=== PATIENT | male | born 1935 | race Caucasian/White ===

== ENCOUNTER 2018-09-23 08:14 | Day surgery (SDC) | payer MEDICARE ==
[~2018-09-23 08:14] MED LIST: Ak-Dilate OPHTHALMIC*** 1.065 ML, Cyclogyl 1% OPHTH SOL 5 ML 1.065 ML, GATIFLOXACIN 0.5... OP ONE; Lactated Ringers 1,000 ML IV SCH; TETRACAINE 0.5% STERI-UNIT SOL OP ONE
[2018-09-23] MEDS ORDERED: DIPRIVAN 200 MG/20 ML IV ONE (08:15)
[2018-09-23] MEDS ORDERED: Lactated Ringers 1,000 ML IV ONE (08:21)
[2018-09-23] MEDS ORDERED: Zofran 4 MG/2 ML VIAL IV PRN (09:00)
[2018-09-23] MEDS ORDERED: ACETAZOLAMIDE 250 MG TABLET PO ONE (09:00)
[2018-09-23] MEDS ORDERED: Epinephrine Preservative Free 1 MG/ML INTRAOP ONE (10:00)
[2018-09-23] MEDS ORDERED: LIDOCAINE HCL 1% AMPUL 5 ML IJ ONE ×2 (10:00)
[2018-09-23] MEDS ORDERED: BSS 500 ML, Fortaz/Tazicef 1 GM** 0.2 G IO ONE ×4 (10:00)
[2018-09-23] MEDS ORDERED: Epinephrine Preservative Free 1 MG/ML IJ ONE (10:00)
[2018-09-23] MEDS ORDERED: BETADINE 5% OPHTHALMIC 30 ML OP ONE ×2 (10:00)
[2018-09-23] MEDS ORDERED: Cortisporin Ophth Oint 3.5 GM OP ONE (10:30)
[2018-09-23 12:10] VITALS: BP 144/86; PULSE 67; O2SAT 91
--- NOTE | 2018-09-23 13:40 | OP ---
DATE/TIME OF OPERATION: 09/23/2018 1037 TIME DICTATED: 1242 PREOPERATIVE DIAGNOSIS: Senile cataract of left eye. POSTOPERATIVE DIAGNOSIS: Senile cataract of left eye. SURGEON: Lianna Vogt MD PRODUCT MARKETING DIRECTOR: None. OPERATION: Cataract extraction of left eye with an intraocular lens implant. STANDARD __X___ COMPLEX ANESTHESIA: MAC. ___X___ Monitored anesthesia care in combination with topical and intra-cameral anesthesia (because of the established specific risk of reflux, arrhythmias, or an anxiety attack associated with ocular manipulation as well as difficulty of the green feed attendant to manage such potentially catastrophic events while simultaneously attempting to complete the surgical procedure, it was deemed necessary for the patient's safety to have an anesthesiologist or a nurse barker operator present during the procedure whenever possible. The anesthesiologist or the nurse barker operator was utilized to monitor and regulate the intravenous sedation of the patient, so the patient was cooperative, relaxed, and comfortable). Topical anesthesia using Tetracaine eye drops together with intra cameral anesthesia using Lidocaine 1% MPF. The nurse was utilized to monitor the patient. ANESTHESIA PROVIDER: Jose Elias Bautista CRNA. COMPLICATIONS: None. BLOOD LOSS: None. INDICATIONS: The patient is undergoing cataract surgery in the hopes of eliminating the visual complaints and difficulty. PROCEDURE: After arriving at the facility's outpatient surgery area, an IV was started; the patient was given 5 mg of p.o. Versed. (If an anesthesia provider was not monitoring the patient) The patient was then given topical anesthetic Tetracaine eye drops. A cotton pellet was soaked into a solution of a combination of Zymaxid 0.5%, Herbie-Synephrine 2.5% and Ocufen (other drops might have been substituted referenced in the patient's record). The pellet was inserted by the RN into the lower conjunctival cul-de-sac with a sterile forceps and left for 20 minutes. The pellet was then removed by the RN with a sterile forceps before taking the patient to the operating room. The preoperative area nurse identified the patient and marked the correct eye to be operated on. I identified the correct eye to be operated on and marked it appropriately in the outpatient surgery area. The patient was then taken into the operating room. Tetracaine eye drops were installed again in the correct eye. The eyelids and the lashes and the lid margins were scrubbed with Betadine solution. One drop of the diluted Betadine solution was placed in the conjunctival cul-de-sac for 45 seconds and then was irrigated. A drop of Tetracaine Gel was placed in the conjunctival cul-de-sac. The patient's forehead was taped to secure it during the procedure. The patient was monitored. The patient was then draped in the usual way for this procedure. An eye speculum was used to separate the eyelids. The eye was then fixated and a temporal 2.5 mm incision was made in the clear cornea temporally at the limbus. Through the incision, 0.25 cc of 1% non-preserved lidocaine was injected into the anterior chamber for intracameral anesthesia. The anterior chamber was then filled with viscoelastic. The pupil was small. I felt that it would be safer to mechanically dilate the pupil. A Malyugin ring was used at this point which dilated the pupil. That was removed at the end of the procedure prior to aspiration of the viscoelastic from the anterior chamber and posterior to the intraocular lens implant. The cataract had a great amount of cortical changes. That rendered seeing the anterior capsule difficult for a safe performance of an anterior capsulotomy. I injected an air bubble into the anterior chamber. I then injected 1 ML of vision blue solution into the anterior chamber. The vision blue solution was irrigated from the anterior chamber after 30 seconds. The anterior capsule was stained which facilitated performing the anterior capsulotomy safely. After that was completed, a cystotome was introduced into the anterior chamber and a round anterior capsulotomy was performed. The capsule was removed by a forceps. Hydrodissection was next carried utilizing a 25-gauge cannula and balanced salt solution to delineate the cortical material from the capsule and the nucleus from the cortical material. The nucleus was rotated freely into the capsular bag with no difficulty. The phaco tip of the [employer] Phacoemulsifier was introduced into the anterior chamber and two grooves were made into the nucleus 90 degrees apart. Using two spatulas resulted into the nucleus being fractured into four quadrants. The phaco tip was then used to remove each quadrant of the nucleus. Viscoelastic was used during this process to protect the corneal endothelium. Once the entire nucleus was removed, the phaco tip then was removed and the irrigation tip was introduced into the eye and the cortex was removed. The posterior capsule was polished. It was noticed that there was a tear into the posterior capsule with few vitreous strands into the pupil plan. An anterior vitrectomy was performed. A 22.00 diopter, [id number], posterior chamber lens implant, was inspected and found to be grossly normal. The implant was inserted into the implant injector cartridge; Viscoelastic again was introduced into the anterior chamber, which filled the capsular bag. The implant injector's cartridge tip was placed at the limbal wound and the posterior chamber implant was released into the capsular bag and rotated appropriately. The implant was found to be into the capsular bag and it was centered. ___X__ 0.2 ml of Tri-Moxi was introduced via 27 gauge cannula into the vitreous cavity through the ciliary processes. Viscoelastic was aspirated from the anterior chamber and posterior to the intraocular lens implant from the capsular bag using the irrigating tip. The anterior chamber was irrigated and filled with 5 cc antibiotic solution (500 cc of BSS plus 2 ml of Fortaz 100 mg/ml) ( if patient was not allergic to the medication). The lips of the corneal incision were hydrated using BSS solution. The anterior chamber was checked and found to be water tight. One drop each of antibiotic, steroid and NSAID drops (refer to chart for drops used) were placed in the conjunctival cul-de-sac of the operated eye. NOTE: Because the patient has dry eyes I also put Maxitrol ointment in the left eye to be used b.i.d. Patient tolerated the procedure quite well and left the operating room in satisfactory condition. DISCHARGE SUMMARY: The patient was released in stable condition. The patient and those with the patient were given an instruction sheet as of how to care for the eye after surgery as well as counseling on any abnormal laboratory studies by the postoperative RN. The patient was also given an appointment card for follow-up in the office and is to call immediately for any difficulties including but not limited to pain in the eye, decreased vision, discharge from the eye, headache and or fever. DISCHARGE DIAGNOSIS: Pseudophakia of left eye.
== END 2018-09-23 12:26 | disposition home or self-care (01) ==
LOC: SDC 08:14
PROVIDERS: ATTEND Ophthalmology
DX: H25.812 Combined forms of age-related cataract, left eye (principal); Z79.899 Other long term (current) drug therapy
CPT/HCPCS: 82962; 99100; C1780; J0171; J2704; A9270-GY

== ENCOUNTER 2019-04-17 02:11 | Emergency (ER) | payer MEDICARE ==
[2019-04-17] MEDS ORDERED: LOPRESSOR 5 MG/5 ML INJECTION IV ONE ×2 (02:24→02:38)
[2019-04-17] MEDS ORDERED: Sodium Chloride 0.9% 1000 ML 1,000 ML IV SCH (02:30)
--- NOTE | 2019-04-17 02:31 | ERPHSYRPT ---
- History of Present Illness Time Seen by Provider: 04/17/19 02:15 Historian: patient Exam Limitations: no limitations Physician History: Chest Pain for the past two days. This evening's episode woke him up from sleep. Timing/Duration: day(s) (2) Activities at Onset: sleep Quality: aching Location: central Chest Pain Radiation: arm Severity of Pain-Max: moderate Severity of Pain-Current: mild Modifying Factors: Improves With: aspirin (relieved it this morning). Worsens With: breathing, coughing, eating, lying down, movement, palpation Associated Symptoms: No nausea, No vomiting, No palpitations, No heartburn, No abdominal pain, No shortness of breath, No cough, No hurts to breathe, No diaphoresis, No chills, No fever, No fatigue, No weakness, No swelling/lump in chest, No syncope, No rash, No headache, No dizziness, No edema, No back pain Prior Chest Pain/Cardiac Workup: cardiac cath, heart attack Nitro Today/Relief: no nitro taken today Aspirin Treatment Today: 325 mg x 1, provided at home Allergies/Adverse Reactions: morphine Allergy (Unknown, Verified 04/17/19 02:16) states "got hot and sweaty with a shot after surgery" Home Medications: Aspirin EC 325 mg [Ecotrin 325 MG] 325 mg PO DAILY 08/14/13 [History] Metformin HCl 500 mg [Glucophage 500 MG] 1,000 mg PO BID 08/14/13 [History ] Metoprolol Succinate 50 mg [Toprol Xl 50 MG] 50 mg PO BID 08/14/13 [ History] Simvastatin 40 mg [Zocor 40 mg] 40 mg PO DAILY 08/14/13 [History] Gabapentin 300 mg PO UD 09/15/18 [History] Glipizide 10 mg PO BID 09/15/18 [History] Lorazepam 2 mg PO QHS 09/15/18 [History] Nortriptyline HCl 10 mg PO QHS 09/15/18 [History] - Review of Systems Constitutional: No Fever, No Chills Eyes: No Symptoms, No Vision Changes Ears, Nose, & Throat: No Symptoms, No Throat Pain Respiratory: No Cough, No Dyspnea Cardiac: Chest Pain, No Edema, No Syncope Abdominal/Gastrointestinal: No Abdominal Pain, No Nausea, No Vomiting, No Diarrhea, No Hematemesis, No Hematochezia, No Melena Genitourinary Symptoms: No Dysuria Musculoskeletal: No Back Pain, No Neck Pain Skin: No Rash Neurological: No Dizziness, No Focal Weakness, No Sensory Changes Psychological: No Anxiety Endocrine: No Excessive Sweating Hematologic/Lymphatic: No Easy Bleeding, No Easy Bruising All Other Systems: Reviewed and Negative - Past Medical History Pertinent Past Medical History: Yes Neurological History: Peripheral Neuropathy ENT History: Cataracts Cardiac History: Coronary Artery Disease, High Cholesterol, Hypertension Respiratory History: No Pertinent History Endocrine Medical History: Diabetes Type II Musculoskeletal History: No Pertinent History GI Medical History: No Pertinent History History: No Pertinent History Psycho-Social History: Anxiety Male Reproductive Disorders: No Pertinent History - Past Surgical History Past Surgical History: Yes Neuro Surgical History: No Pertinent History Cardiac: CABG, Cardiac Catheterization Respiratory: No Pertinent History Gastrointestinal: No Pertinent History Genitourinary: No Pertinent History Musculoskeletal: No Pertinent History Male Surgical History: No Pertinent History Other Surgical History: Skin cancer removed from face in 2001, bone removed from left side of face. - Social History Smoking Status: Never smoker Exposure to second hand smoke: No Drug Use: none - Nursing Vital Signs Nursing Vital Signs: Initial Vital Signs Pulse Rate 88 04/17/19 02:16 Respiratory Rate 21 04/17/19 02:16 Blood Pressure 155/106 04/17/19 02:16 O2 Sat by Pulse Oximetry 88 L 04/17/19 02:16 Pain Scale Pain Intensity 4 - Physical Exam General Appearance: no apparent distress, alert Eye Exam: PERRL/EOMI, eyes nml inspection Ears, Nose, Throat Exam: normal ENT inspection, moist mucous membranes Neck Exam: normal inspection, non-tender, supple, full range of motion Respiratory Exam: normal breath sounds, lungs clear, No respiratory distress, No crackles/rales, No rhonchi, No wheezing Cardiovascular Exam: regular rate/rhythm, normal heart sounds, normal peripheral pulses Gastrointestinal/Abdomen Exam: soft, normal bowel sounds, No tenderness, No mass , No guarding, No rebound Back Exam: normal inspection, No CVA tenderness, No vertebral tenderness Extremity Exam: normal inspection, normal range of motion Neurologic Exam: alert, oriented x 3, cooperative, normal mood/affect, sensation nml, No motor deficits Skin Exam: normal color, warm, dry SpO2 Interpretation: hypoxic, O2 applied O2 Delivery: Nasal Cannula - Course Nursing assessment & vital signs reviewed: Yes EKG Interpreted by Me: RATE (90), Sinus Rhythm, NORMAL AXIS, Right Bundle Branch Block, NORMAL ST-T, Other (no acute change in comparison to EKG from 2013) - Radiology Exams Chest X-ray Interpretation: Interpreted by me, Reviewed by me, Negative, No Fracture, No Pneumonia, No Pneumothorax, No Infiltrates, Nml Mediastinum Ordered Tests: Active Orders 24 hr Category Date Time Status 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 STAT Care 04/17/19 02:24 Active EKG-ER Only STAT Care 04/17/19 02:24 Active IV Insertion STAT Care 04/17/19 02:24 Active Pulse Oximetry (ED) STAT Care 04/17/19 02:24 Active CHEST 1 VIEW (PORTABLE) Stat Exams 04/17/19 02:49 Taken CBC W DIFF Stat Lab 04/17/19 02:25 Completed CK-Creatinine Phosphokinase Stat Lab 04/17/19 02:25 Completed CMP Stat Lab 04/17/19 02:25 Completed MAGNESIUM Stat Lab 04/17/19 02:25 Completed NT PRO BNP Stat Lab 04/17/19 02:25 Completed PROTIME WITH INR Stat Lab 04/17/19 02:25 Completed PTT Stat Lab 04/17/19 02:25 Completed TROPONIN Q3H Lab 04/17/19 02:25 Completed TROPONIN Q3H Lab 04/17/19 05:30 Ordered TROPONIN Q3H Lab 04/17/19 08:30 Ordered TROPONIN Q3H Lab 04/17/19 11:30 Ordered TROPONIN Q3H Lab 04/17/19 14:30 Ordered VENOUS BLOOD GAS Stat Lab 04/17/19 02:40 Completed Medication Summary Generic Name Dose Route Start Last Admin Trade Name Freq PRN Reason Stop Dose Admin Sodium Chloride 1,000 mls @ 100 mls/hr 04/17/19 02:30 04/17/19 02:43 Sodium Chloride 0.9% 1000 Ml IV 05/17/19 02:29 100 mls/hr .Q10H [place] Administration Heparin Sodium/Dextrose 250 mls @ 9 mls/hr 04/17/19 03:28 Heparin 25,000 Units/D5w 250ml Premix IV 05/17/19 03:26 .Q24H [place] Heparin Sodium/Dextrose 25,000 units in 250 mls @ 9 mls/hr 04/17/19 03:30 03:31 Heparin 25,000 Units/D5w 250ml Premix IV 05/17/19 03:29 9 ml/hr .Q24H [place] 9 mls/hr Administration Discontinued Medications Generic Name Dose Route Start Last Admin Trade Name Freq PRN Reason Stop Dose Admin Famotidine 20 mg 04/17/19 02:33 04/17/19 02:43 Pepcid 20 Mg Vial IV 04/17/19 02:34 20 mg STAT ONE Administration Famotidine Confirm 04/17/19 02:38 Pepcid 20 Mg Vial Administered 04/17/19 02:39 Dose 20 mg IV .STK-MED ONE Heparin Sodium (Beef Lung) 4,200 unit 04/17/19 03:10 04/17/19 03:19 Heparin 5000 Units/0.5 Ml (High Risk Med) IV 04/17/19 03:11 4,200 unit STAT ONE Administration Heparin Sodium (Beef Lung) Confirm 04/17/19 03:14 Heparin 5000 Units/0.5 Ml (High Risk Med) Administered 04/17/19 03:15 Dose 5,000 unit .ROUTE .STK-MED ONE Heparin Sodium/Dextrose 250 mls @ 9 mls/hr 04/17/19 03:30 Heparin 25,000 Units/D5w 250ml Premix IV 05/17/19 03:29 .Q24H [place] Heparin Sodium/Dextrose Confirm 04/17/19 03:15 Heparin 25,000 Units/D5w 250ml Premix Administered 04/17/19 03:16 Dose 25,000 units in 250 mls @ ud IV .STK-MED ONE Metoprolol Tartrate 5 mg 04/17/19 02:24 04/17/19 02:43 Lopressor 5 Mg/5 Ml Injection IV 04/17/19 02:25 5 mg STAT ONE Administration Metoprolol Tartrate Confirm 04/17/19 02:38 Lopressor 5 Mg/5 Ml Injection Administered 04/17/19 02:39 Dose 5 mg IV .STK-MED ONE Lab/Rad Data: Laboratory Result Diagrams 04/17/19 02:25 04/17/19 02:25 Laboratory Results 04/17/19 04/17/19 04/17/19 Range/Units 02:40 02:25 02:25 WBC (4.0-10.5) K/mm3 RBC (4.1-5.6) M/mm3 Hgb (12.5-18.0) gm/dl Hct (42-50) % MCV (78-100) fl MCH (26-32) pg MCHC (32-36) g/dl RDW (11.5-14.0) % Plt Count (150-450) K/mm3 MPV (6-9.5) fl Gran % (36.0-66.0) % Eos # (Auto) (0-0.5) Absolute Lymphs (auto) (1.0-4.6) Absolute Monos (auto) (0.0-1.3) Lymphocytes % (24.0-44.0) % Monocytes % (0.0-12.0) % Eosinophils % (0.00-5.0) % Basophils % (0.0-0.4) % Absolute Granulocytes (1.4-6.9) Basophils # (0-0.4) PT (8.83-12.87) SECONDS INR (0.8-3.0) APTT (24.1-36.1) SECONDS pO2/FiO2 Ratio 21.0 % VBG pH 7.32 (7.32-7.42) VBG pCO2 at Pat Temp 52 (42-55) mm/Hg VBG pO2 at Pat Temp 24 L (25-40) mm/Hg VBG HCO3 26.8 (22-28) meq/L VBG O2 Sat (Thony) 47.1 L (95-100) VBG Base Excess -0.3 (-2.0-2.0) VBG Hemoglobin 15.3 VBG Carboxyhemoglobin 2.1 (0.0-6.9) % T HGB POC Potassium 4.7 (3.5-5.1) Sodium (137-145) mmol/L Potassium (3.5-5.1) mmol/L Chloride (98-107) mmol/L Carbon Dioxide (22-30) mmol/L Anion Gap (5-15) MEQ/L BUN (9-20) mg/dL Creatinine (0.66-1.25) mg/dL Estimated GFR ML/MIN Glucose (74-106) mg/dL Calcium (8.4-10.2) mg/dL Magnesium 1.8 (1.6-2.3) mg/dL Total Bilirubin (0.2-1.3) mg/dL AST (17-59) U/L ALT (0-50) U/L Alkaline Phosphatase (38-126) U/L Creatine Kinase (55-170) U/L Troponin I 0.450 H* (0.000-0.034) ng/mL NT-Pro-B Natriuret Pep (0-1800) pg/mL Serum Total Protein (6.3-8.2) g/dL Albumin (3.5-5.0) g/dL 04/17/19 04/17/19 04/17/19 Range/Units 02:25 02:25 02:25 WBC 9.9 (4.0-10.5) K/mm3 RBC 4.42 (4.1-5.6) M/mm3 Hgb 14.9 (12.5-18.0) gm/dl Hct 45.5 (42-50) % MCV 102.9 H (78-100) fl MCH 33.7 H (26-32) pg MCHC 32.7 (32-36) g/dl RDW 15.0 H (11.5-14.0) % Plt Count 234 (150-450) K/mm3 MPV 9.0 (6-9.5) fl Gran % 55.0 (36.0-66.0) % Eos # (Auto) 0.40 (0-0.5) Absolute Lymphs (auto) 3.06 (1.0-4.6) Absolute Monos (auto) 0.94 (0.0-1.3) Lymphocytes % 31.0 (24.0-44.0) % Monocytes % 9.5 (0.0-12.0) % Eosinophils % 4.1 (0.00-5.0) % Basophils % 0.4 (0.0-0.4) % Absolute Granulocytes 5.43 (1.4-6.9) Basophils # 0.04 (0-0.4) PT 12.9 H (8.83-12.87) SECONDS INR 1.14 (0.8-3.0) APTT 32.6 (24.1-36.1) SECONDS pO2/FiO2 Ratio % VBG pH (7.32-7.42) VBG pCO2 at Pat Temp (42-55) mm/Hg VBG pO2 at Pat Temp (25-40) mm/Hg VBG HCO3 (22-28) meq/L VBG O2 Sat (Thony) (95-100) VBG Base Excess (-2.0-2.0) VBG Hemoglobin VBG Carboxyhemoglobin (0.0-6.9) % T HGB POC Potassium (3.5-5.1) Sodium 141 (137-145) mmol/L Potassium 4.8 (3.5-5.1) mmol/L Chloride 104 (98-107) mmol/L Carbon Dioxide 26 (22-30) mmol/L Anion Gap 15.5 H (5-15) MEQ/L BUN 26 H (9-20) mg/dL Creatinine 1.03 (0.66-1.25) mg/dL Estimated GFR > 60.0 ML/MIN Glucose 191 H (74-106) mg/dL Calcium 9.5 (8.4-10.2) mg/dL Magnesium (1.6-2.3) mg/dL Total Bilirubin 0.50 (0.2-1.3) mg/dL AST 31 (17-59) U/L ALT 16 (0-50) U/L Alkaline Phosphatase 82 (38-126) U/L Creatine Kinase 84 (55-170) U/L Troponin I (0.000-0.034) ng/mL NT-Pro-B Natriuret Pep 4580 H (0-1800) pg/mL Serum Total Protein 7.6 (6.3-8.2) g/dL Albumin 4.3 (3.5-5.0) g/dL - Progress Progress: improved Air Movement: good Progress Note: 04/17/19 03:00 Patient is chest pain free at this time. Sinus rhythm on the color television console monitor. Taking the patient off the oxygen, 97 percent on room air with 95% while talking HEART score: 7- up to 16.6% risk of adverse cardiac event, moderate risk 04/17/19 03:12 Spoke with Transfer Center at [facility]. Patient has been auto-accepted into admission to the emergency department after presentation, EKG , labwork and chest x-ray reviewed. 04/17/19 03:[address] Merchant into [facility] emergency department. 04/17/19 03:48 Patient restarted on oxygen as his saturation dropped to 88% on room air. Blood Culture(s) Obtained: No Antibiotics given: No Counseled pt/family regarding: lab results, diagnosis, need for follow-up, rad results - Departure Departure Disposition: Transfer ([facility] in [place], [place] and accepted by Dr Merchant) Clinical Impression: Acute coronary syndrome with high troponin, Hypoxia Hypertension Qualifiers: Hypertension type: essential hypertension Qualified Code(s): I10 - Essential ( primary) hypertension Condition: Serious Critical Care Time: Yes Critical Care Time(excluding separately billable procedures): Critical 30-74 mins Referrals: BRIE CALDWELL [Primary Care Provider] -
[2019-04-17] MEDS ORDERED: Pepcid 20 MG VIAL IV ONE ×2 (02:33→02:38)
[2019-04-17] MEDS ORDERED: Sodium Chloride 0.9% 1000 ML 1,000 ML ONE (02:38)
[2019-04-17 02:40] LABS: BASOPHIL % 0.4 % (0.0-0.4); Basophil (Absolute #) 0.04 (0-0.4); Eosinophil % 4.1 % (0.00-5.0); Granulocyte Absolute (ANC) 5.43 (1.4-6.9); Hematocrit 45.5 % (42-50); Hemoglobin 14.9 gm/dl (12.5-18.0); Lymphocyte (Absolute #) 3.06 (1.0-4.6); Mean Cell Volume 102.9 fl (78-100); Mean Corpuscular Hemoglobin 33.7 pg (26-32); Mean Corpuscular Hgb Concent. 32.7 g/dl (32-36); Monocyte (Absolute #) 0.94 (0.0-1.3); Monocytes % 9.5 % (0.0-12.0); Platelet Count 234 K/mm3 (150-450); Red Blood Count 4.42 M/mm3 (4.1-5.6); White Blood Count 9.9 K/mm3 (4.0-10.5)
[2019-04-17 02:44] LABS: VBG BASE EXCESS -0.3 (-2.0-2.0); VBG CARBOXYHEMOGLOBIN 2.1 % T HGB (0.0-6.9); VBG HCO3- 26.8 meq/L (22-28); VBG HEMOGLOBIN 15.3; VBG O2 SATURATION 47.1 (95-100); VBG POTASSIUM 4.7 (3.5-5.1); VBG pH 7.32 (7.32-7.42)
[2019-04-17 02:48] LABS: INR 1.14 (0.8-3.0); PROTIME 12.9 SECONDS (8.83-12.87)
[2019-04-17 02:50] LABS: PTT 32.6 SECONDS (24.1-36.1)
[2019-04-17 03:02] LABS: ALBUMIN 4.3 g/dL (3.5-5.0); ALKALINE PHOSPHATASE 82 U/L (38-126); ANION GAP 15.5 MEQ/L (5-15); BLOOD UREA NITROGEN 26 mg/dL (9-20); CHLORIDE 104 mmol/L (98-107); CK-Creatinine Phosphokinase 84 U/L (55-170); Calcium 9.5 mg/dL (8.4-10.2); Carbon Dioxide 26 mmol/L (22-30); Creatinine 1 1.03 mg/dL (0.66-1.25); Glucose 191 mg/dL (74-106); NT PRO BNP 4580 pg/mL (0-1800); Potassium 4.8 mmol/L (3.5-5.1); SGOT/AST 31 U/L (17-59); SGPT/ALT 16 U/L (0-50); SODIUM 141 mmol/L (137-145); Total Protein 7.6 g/dL (6.3-8.2)
[2019-04-17] MEDS ORDERED: Heparin 5000 UNITS/0.5 ML (HIGH RISK MED) IV ONE (03:10)
[2019-04-17] MEDS ORDERED: Heparin 5000 UNITS/0.5 ML (HIGH RISK MED) ONE (03:14)
[2019-04-17] MEDS ORDERED: Heparin 25,000 units/D5W 250ML PREMIX 25,000 UNITS/250 ML BAG IV ONE (03:15)
[2019-04-17] MEDS ORDERED: Heparin 25,000 units/D5W 250ML PREMIX 25,000 UNITS/250 ML BAG IV SCH ×2 (03:28→03:30)
[2019-04-17] MEDS ORDERED: Heparin 25,000 units/D5W 250ML PREMIX 250 ML IV SCH (03:30)
[2019-04-17 03:42] VITALS: BP 154/100; PULSE 83; O2SAT 94
--- NOTE | 2019-04-17 08:51 | XRAY ---
Indication: Chest pain. Comparison: None Portable apical lordotic chest is slightly under inflated and clear with incidental overlying monitoring leads. Heart is not enlarged with previous CABG surgery. Bony thorax intact with mild osteopenia and degenerative changes. Impression: Nonacute chest with chronic features.
== END 2019-04-17 03:58 | disposition short-term general hospital (02) ==
LOC: ED 02:11
DX: I24.9 Acute ischemic heart disease, unspecified (principal); R74.8 Abnormal levels of other serum enzymes; R09.02 Hypoxemia; I10 Essential (primary) hypertension
CPT/HCPCS: 36000; 36415; 71045; 80053; 82550; 82805; 83735; 83880; 84484; 85025; 85610; 85730; 93005; 93041; 94760; 96360; 96374; 96375; 96376; 99285; 99291; J1644

== ENCOUNTER 2019-08-19 11:57 | Emergency (ER) | payer MEDICARE ==
--- NOTE | 2019-08-19 12:24 | ERPHSYRPT ---
- History of Present Illness Time Seen by Provider: 08/19/19 12:10 Source: patient, family Exam Limitations: no limitations Patient Subjective Stated Complaint: Pt has had a nose bleed since approx 0700 this morning, stated that it did let up for a little bit but then started back up Triage Nursing Assessment: Pt brought to the ER by his , denies pain, nose is not actively bleeding at this time, vitals wnl, pulses normal, denies injury or trauma, doesn't appear to be in any distress Physician History: 84 yo on aspirin/plavix, 3 L nasal canula all the time presented with mild right nasal bleed around 7am which stopped on its own but later around 1030 again had bleed. denies any clot s, no difficulty breathing. does not use nasal steroids. Timing/Duration: gradual onset Severity: mild ENT Location: nose Prearrival Treatment: no prearrival treatment Modifying Factors: Improves With: oxygen Associated Symptoms: epistaxis, No dizziness, No facial pain/swelling, No headache, No nasal congestion/drainage, No nasal foreign body, No neck pain, No swollen glands Allergies/Adverse Reactions: morphine Allergy (Unknown, Verified 08/19/19 12:15) states "got hot and sweaty with a shot after surgery" Home Medications: Aspirin EC 325 mg [Ecotrin 325 MG] 325 mg PO DAILY 08/14/13 [History] Metformin HCl 500 mg [Glucophage 500 MG] 1,000 mg PO BID 08/14/13 [History ] Metoprolol Succinate 50 mg [Toprol Xl 50 MG] 50 mg PO BID 08/14/13 [ History] Gabapentin 300 mg PO UD 09/15/18 [History] Glipizide 10 mg PO BID 09/15/18 [History] Lorazepam 2 mg PO QHS 09/15/18 [History] Nortriptyline HCl 10 mg PO QHS 09/15/18 [History] Clopidogrel Bisulfate [Clopidogrel] 75 mg PO DAILY 08/19/19 [History] Hx Influenza Vaccination/Date Given: Yes Hx Pneumococcal Vaccination/Date Given: Yes - Review of Systems Constitutional: No Symptoms Eyes: No Symptoms Ears, Nose, & Throat: No Symptoms, Epistaxis (no active bleed /lesion) Respiratory: Dyspnea, Wheezing Cardiac: No Symptoms Abdominal/Gastrointestinal: No Symptoms Genitourinary Symptoms: No Symptoms Musculoskeletal: No Symptoms Skin: No Symptoms Neurological: No Symptoms Psychological: No Symptoms Endocrine: No Symptoms Hematologic/Lymphatic: No Symptoms - Past Medical History Pertinent Past Medical History: Yes Neurological History: Peripheral Neuropathy ENT History: Cataracts Cardiac History: Coronary Artery Disease, High Cholesterol, Hypertension Respiratory History: No Pertinent History Endocrine Medical History: Diabetes Type II Musculoskeletal History: No Pertinent History GI Medical History: No Pertinent History History: No Pertinent History Psycho-Social History: Anxiety Male Reproductive Disorders: No Pertinent History - Past Surgical History Past Surgical History: Yes Neuro Surgical History: No Pertinent History Cardiac: CABG, Cardiac Catheterization Respiratory: No Pertinent History Gastrointestinal: No Pertinent History Genitourinary: No Pertinent History Musculoskeletal: No Pertinent History Male Surgical History: No Pertinent History Other Surgical History: Skin cancer removed from face in 2001, bone removed from left side of face. - Social History Smoking Status: Former smoker Exposure to second hand smoke: No Drug Use: none Patient Lives Alone: No - Nursing Vital Signs Nursing Vital Signs: Initial Vital Signs Pulse Rate 104 H 08/19/19 12:05 Blood Pressure 107/79 08/19/19 12:05 O2 Sat by Pulse Oximetry 98 08/19/19 12:05 Pain Scale Pain Intensity 0 - Physical Exam General Appearance: no apparent distress, alert Eye Exam: bilateral eye: normal inspection Nasal Exam: normal inspection, No dried blood (no lesion or tricling of blood noticed in both nares after blowing nose .), No foreign body Throat Exam: normal, pharynx normal Neck Exam: normal inspection Cardiovascular/Respiratory Exam: chest non-tender Abdominal Exam: non-tender, soft Neurologic Exam: alert, oriented x 3, cooperative, 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, normal mood/affect Skin Exam: normal color SpO2 Interpretation: normal SpO2: 3 O2 Delivery: Room Air - Course Nursing assessment & vital signs reviewed: Yes Ordered Tests: Active Orders 24 hr Category Date Time Status CBC W DIFF Stat Lab 08/19/19 12:40 Completed PT INR [PROTIME WITH INR] Stat Lab 08/19/19 12:40 Completed PTT Stat Lab 08/19/19 12:40 Completed Lab/Rad Data: Laboratory Result Diagrams 08/19/19 12:40 Laboratory Results 08/19/19 08/19/19 Range/Units 12:40 12:40 WBC 6.5 (4.0-10.5) K/mm3 RBC 4.32 (4.1-5.6) M/mm3 Hgb 14.1 (12.5-18.0) gm/dl Hct 44.0 (42-50) % MCV 101.9 H (78-100) fl MCH 32.6 H (26-32) pg MCHC 32.0 (32-36) g/dl RDW 14.5 H (11.5-14.0) % Plt Count 276 (150-450) K/mm3 MPV 8.5 (7.5-11.0) fl Gran % 69.7 H (36.0-66.0) % Eos # (Auto) 0.28 (0-0.5) Absolute Lymphs (auto) 1.10 (1.0-4.6) Absolute Monos (auto) 0.56 (0.0-1.3) Lymphocytes % 16.9 L (24.0-44.0) % Monocytes % 8.6 (0.0-12.0) % Eosinophils % 4.3 (0.00-5.0) % Basophils % 0.5 (0.0-0.4) % Absolute Granulocytes 4.54 (1.4-6.9) Basophils # 0.03 (0-0.4) PT 13.9 H (8.83-12.87) SECONDS INR 1.23 (0.8-3.0) APTT 33.4 (24.1-36.1) SECONDS - Progress Progress: improved, re-examined Progress Note: 08/19/19 13:16 patient has no bleeding while in ER and nasal exam didnt show any lesion. he is observed for more than an hour but no rebleed. has stable H/H . probably related to to use of oxygen and recommended saline nasal spray and humidified air. follow up out patient with PCP and ENT. discussed sx/sn of worsening needing return which he seems understanding. Counseled pt/family regarding: lab results, diagnosis, need for follow-up - Departure Departure Disposition: Home Clinical Impression: Epistaxis Condition: Stable Critical Care Time: No Referrals: BRIE CALDWELL [Primary Care Provider] - (1-2 days for re evaluation) YANY MONTANEZ MD [CONSULTING PHYSICIAN] - (1-2 days for re evaluation) Instructions: Nosebleeds (DC) Additional Instructions: use Saline nasal spray to avoid nasal septum getting dry with continuous oxygen use. use humdifier for your oxygen. follow up with PCP /ENT for re evaluation. return to ER for worsening. apply firm pressure for 5 minutes if has again bleeding and return.
[2019-08-19 12:46] LABS: Absolute Neutrophil Ct (ANC) 4.54 (1.4-6.9); BASOPHIL % 0.5 % (0.0-0.4); Basophil (Absolute #) 0.03 (0-0.4); Eosinophil % 4.3 % (0.00-5.0); Eosinophil (Absolute #) 0.28 (0-0.5); Hemoglobin 14.1 gm/dl (12.5-18.0); Lymphocytes % 16.9 % (24.0-44.0); Mean Cell Volume 101.9 fl (78-100); Mean Corpuscular Hemoglobin 32.6 pg (26-32); Mean Platelet Volume 8.5 fl (7.5-11.0); Monocyte (Absolute #) 0.56 (0.0-1.3); Monocytes % 8.6 % (0.0-12.0); Neutrophil % 69.7 % (36.0-66.0); Platelet Count 276 K/mm3 (150-450); Red Blood Count 4.32 M/mm3 (4.1-5.6); Red Cell Distribution Width 14.5 % (11.5-14.0); White Blood Count 6.5 K/mm3 (4.0-10.5)
[2019-08-19 12:51] LABS: INR 1.23 (0.8-3.0); PROTIME 13.9 SECONDS (8.83-12.87)
[2019-08-19 12:54] LABS: PTT 33.4 SECONDS (24.1-36.1)
[2019-08-19 13:35] VITALS: BP 126/73; PULSE 97; O2SAT 99
== END 2019-08-19 13:40 | disposition home or self-care (01) ==
LOC: ED 11:57
DX: R04.0 Epistaxis (principal); Z99.81 Dependence on supplemental oxygen; I10 Essential (primary) hypertension; I25.810 Atherosclerosis of coronary artery bypass graft(s) without angina pectoris; E78.00 Pure hypercholesterolemia, unspecified; E11.9 Type 2 diabetes mellitus without complications; G62.9 Polyneuropathy, unspecified; F41.9 Anxiety disorder, unspecified; Z79.899 Other long term (current) drug therapy; Z79.4 Long term (current) use of insulin
CPT/HCPCS: 36415; 85025; 85610; 85730; 99283

== ENCOUNTER 2021-06-11 08:53 | Inpatient (IN) | payer MEDICARE ==
[2021-06-11] MEDS ORDERED: Zithromax 500 MG/ 250 ML NaCl Premix 500 MG/250 ML IVPB IV STA (09:21)
[2021-06-11] MEDS ORDERED: solu-MEDROL 125 MG, Sterile H2O 10 ml 2 ML IV ONE ×2 (09:21)
[2021-06-11] MEDS ORDERED: DUONEB 0.5-3 MG/3 ml Neb IH ONE ×2 (09:22→10:08)
[2021-06-11] MEDS ORDERED: ROCEPHIN 2 Gm-D5w 50ML BAG** 2 G/50 ML IVPB IV STA (09:23)
[2021-06-11 09:25] LABS: A-aADO2 69; ABG HEMOGLOBIN 13.2; ABG POTASSIUM 4.8 (3.5-5.1); ARTERIAL BLD GAS O2 SATURATION 97.8 % (95-100); ARTERIAL BLOOD GAS BASE EXCESS 11.7 (-2.0-2.0); ARTERIAL BLOOD GAS FIO2 36 %; ARTERIAL BLOOD GAS PCO2 78 mmHg (35-45); ARTERIAL BLOOD GAS PO2 90 mmHg (75-100); ARTERIAL BLOOD GAS pH 7.33 (7.35-7.45); CARBOXYHEMOGLOBIN 1.8 % THgb (0.0-6.9); HCO3- 41.1 (22-28); HGB O2 SAT 95.2 g/dF (94-100); Methhemoglobin 0.8 % (1.4-1.5)
[2021-06-11 09:26] LABS: ABG SITE RIGHT RADIAL; ALLEN TEST OK? YES
[2021-06-11] MEDS ORDERED: solu-MEDROL ONE (09:32)
[2021-06-11] MEDS ORDERED: Sterile H2O 10 ml IJ ONE (09:32)
[2021-06-11] MEDS: Sodium Chloride 0.9% 1000 ML 1,000 ML IV SCH ×2 (09:33→14:17)
[2021-06-11 09:47] LABS: Absolute Neutrophil Ct (ANC) 6.08 (1.4-6.9); BASOPHIL % 0.3 % (0.0-0.4); Basophil (Absolute #) 0.02 (0-0.4); Eosinophil (Absolute #) 0.07 (0-0.5); Hematocrit 45.2 % (42-50); Lymphocyte (Absolute #) 0.45 (1.0-4.6); Lymphocytes % 6.3 % (24.0-44.0); Mean Corpuscular Hemoglobin 31.6 pg (26-32); Mean Corpuscular Hgb Concent. 28.8 g/dl (32-36); Mean Platelet Volume 9.5 fl (7.5-11.0); Monocyte (Absolute #) 0.58 (0.0-1.3); Monocytes % 8.1 % (0.0-12.0); Neutrophil % 84.3 % (36.0-66.0); Platelet Count 253 K/mm3 (150-450); Red Blood Count 4.11 M/mm3 (4.1-5.6); Red Cell Distribution Width 15.9 % (11.5-14.0); White Blood Count 7.2 K/mm3 (4.0-10.5)
[2021-06-11 09:55] LABS: Appearance CLOUDY (CLEAR); Bacteria RARE /HPF (NEGATIVE); Bilirubin NEGATIVE (NEGATIVE); Blood LARGE Ery/ul (0-5); Epithelial Cells FEW /HPF (FEW); Glucose 50 mg/dL (NEGATIVE); Ketones TRACE (NEGATIVE); Leukocyte Esterase NEGATIVE (NEGATIVE); Mucus SLIGHT /HPF (NEGATIVE); Nitrite NEGATIVE (NEGATIVE); Protein,Urine Dip 100 (Negative); RBC 51-100 /HPF (0-2); Specific Gravity 1.021 (1.005-1.025); Urobilinogen 4 mg/dL (0-1)
[2021-06-11] MEDS ORDERED: ROCEPHIN 2 Gm-D5w 50ML BAG** 2 G/50 ML IVPB IV ONE (09:55)
[2021-06-11] MEDS ORDERED: Zithromax 500 MG/ 250 ML NaCl Premix 500 MG/250 ML IVPB IV ONE (09:55)
[2021-06-11 10:25] LABS: ALBUMIN 3.7 g/dL (3.5-5.0); ALKALINE PHOSPHATASE 88 U/L (38-126); ANION GAP 12.4 MEQ/L (5-15); BLOOD UREA NITROGEN 34 mg/dL (9-20); CHLORIDE 95 mmol/L (98-107); Calcium 9.3 mg/dL (8.4-10.2); Carbon Dioxide 40 mmol/L (22-30); Creatinine 1 0.91 mg/dL (0.66-1.25); EST GLOMERULAR FILTRATION RATE > 60.0 ML/MIN; Glucose 306 mg/dL (74-106); SGOT/AST 19 U/L (17-59); SGPT/ALT 11 U/L (0-50); SODIUM 142 mmol/L (137-145); Total Protein 7.6 g/dL (6.3-8.2)
--- NOTE | 2021-06-11 11:14 | ERPHSYRPT ---
- History of Present Illness Time Seen by Provider: 06/11/21 09:01 Source: patient, family Exam Limitations: clinical condition Patient Subjective Stated Complaint: Daughter states that he called her and she couldn't understand him and then her mother who has dementia told the daughter that he was more and more confused Triage Nursing Assessment: Pt brought to the ER by his family, tachypnic, denies pain, A&O to name and place, pulses bounding, skin n/w/d, daughter states that he did fall a while back but unsure when, wears 4L NC at home, doesn't appear to be in any distress Physician History: 86 years old with multiple medical problems including diabetes mellitus, hypertension, hyperlipidemia, coronary artery disease, chronic respiratory failure on 4 L oxygen is brought in the ER by daughter with chief complaint of altered mental status. Patient reports he has been feeling confused for the last couple of days and it was confirmed by daughter and home health. He did call her home health nurse about confusion yesterday. Patient denies any chest pain palpitations but has chronic shortness of breath which according to him is not any worse than usual but his oxygen saturation is dropping in upper 70s de spite being on 4 L. Denies any abdominal pain nausea or vomiting. Does have decreased oral intake. Patient lately been having multiple falls and the last fall was few days ago which went unwitnessed. Patient although is able to ambulate with his walker at his baseline. Does have decubitus ulcer which is not any worse than normal. Timing/Duration: day(s) (4), gradual onset, worse Severity: moderate Associated Symptoms: shortness of breath, cough, loss of appetite, malaise, weakness, No vomiting, No abdominal pain, No heartburn, No diaphoresis, No chest pain, No fever, No headaches Allergies/Adverse Reactions: morphine Allergy (Unknown, Verified 06/11/21 12:52) states "got hot and sweaty with a shot after surgery" Home Medications: Metformin HCl 500 mg [Glucophage 500 MG] 500 mg PO BID 08/14/13 [History] Glipizide 5 mg PO BID 09/15/18 [History] Nortriptyline HCl 10 mg PO QHS 09/15/18 [History] Clopidogrel Bisulfate [Clopidogrel] 75 mg PO DAILY 08/19/19 [History] Aspirin EC 81 mg [Ecotrin 81 mg] 81 mg PO DAILY 06/11/21 [History] Fluticasone/Umeclidin/Vilanter [Trelegy Ellipta 100-62.5-25] 1 inh PO DAILY 06/11/21 [History] Gabapentin 300 mg [Neurontin 300 mg] 300 mg PO TID 06/11/21 [History] Gabapentin 300 mg [Neurontin 300 mg] 600 mg PO QHS 06/11/21 [History] Metoprolol Tartrate 50 mg [Lopressor 50 MG] 50 mg PO BID 06/11/21 [History] Mupirocin [Centany] 1 gm TP BID 06/11/21 [History] Simvastatin [Zocor] 40 mg PO DAILY 06/11/21 [History] Hx Influenza Vaccination/Date Given: Yes Hx Pneumococcal Vaccination/Date Given: Yes Travel Risk - International Travel Have you traveled outside of the country in past 3 weeks: No - Coronavirus Screening Are you exhibiting any of the following symptoms?: No Close contact with a COVID-19 positive Pt in past 14-21 Days: No - Vaccine Status Have you recieved a Covid-19 vaccination: Yes Set Up Worker: Moderna - Vaccination Dates Date of 2cond Vaccination (if applicable): 10/2020 - Review of Systems Constitutional: Fatigue, Weakness Eyes: No Symptoms Ears, Nose, & Throat: No Symptoms Respiratory: No Symptoms Cardiac: No Symptoms Abdominal/Gastrointestinal: No Symptoms Genitourinary Symptoms: No Symptoms Musculoskeletal: Fall Skin: Decubiti Neurological: No Symptoms Endocrine: No Symptoms Hematologic/Lymphatic: No Symptoms Immunological/Allergic: No Symptoms - Past Medical History Pertinent Past Medical History: Yes Neurological History: Peripheral Neuropathy ENT History: Cataracts Cardiac History: Coronary Artery Disease, High Cholesterol, Hypertension Respiratory History: No Pertinent History Endocrine Medical History: Diabetes Type II Musculoskeletal History: No Pertinent History GI Medical History: No Pertinent History History: No Pertinent History Psycho-Social History: Anxiety Male Reproductive Disorders: No Pertinent History - Past Surgical History Past Surgical History: Yes Neuro Surgical History: No Pertinent History Cardiac: CABG, Cardiac Catheterization Respiratory: No Pertinent History Gastrointestinal: No Pertinent History Genitourinary: No Pertinent History Musculoskeletal: No Pertinent History Male Surgical History: No Pertinent History Other Surgical History: Skin cancer removed from face in 2001, bone removed from left side of face. - Social History Smoking Status: Former smoker Exposure to second hand smoke: No Drug Use: none Patient Lives Alone: No - Nursing Vital Signs Nursing Vital Signs: Initial Vital Signs Temperature 97.5 F 06/11/21 09:07 Pulse Rate 91 H 06/11/21 09:07 Respiratory Rate 24 06/11/21 09:07 Blood Pressure 139/92 06/11/21 09:07 O2 Sat by Pulse Oximetry 88 L 06/11/21 09:07 Pain Scale Pain Intensity 0 - Physical Exam General Appearance: no apparent distress, alert Eye Exam: PERRL/EOMI, eyes nml inspection Ears, Nose, Throat Exam: normal ENT inspection, other (Chronic oral lesion from previous surgery) Neck Exam: normal inspection, supple, full range of motion Respiratory Exam: crackles/rales, rhonchi, wheezing, No respiratory distress Cardiovascular Exam: regular rate/rhythm, normal heart sounds Gastrointestinal/Abdomen Exam: soft, normal bowel sounds, No tenderness Back Exam: normal inspection, other (Decubitus at lower back) Extremity Exam: normal range of motion, pelvis stable Neurologic Exam: alert, cooperative, assembly hand II-XII nml as tested, No oriented x 3 (Oriented to place and person) Skin Exam: normal color SpO2 Interpretation: hypoxic, O2 applied SpO2: 100 O2 Delivery: Nasal Cannula - Course EKG Interpreted by Me: RATE (90), Sinus Rhythm, NORMAL AXIS, Other (ST depression in anterolateral. T wave inversion in inferoanterior/septal) Ordered Tests: Medication Summary Generic Name Dose Route Start Last Admin Trade Name Nataly PRN Reason Stop Dose Admin Acetaminophen 650 mg 06/11/21 12:54 Acetaminophen 325 Mg Tablet PO 07/11/21 12:53 Q4H PRN PRN PAIN AND/OR FEVER Aspirin 81 mg 06/12/21 10:00 06/14/21 12:01 Aspirin 81 Mg Tablet.Ec PO 07/12/21 09:59 81 mg DAILY [place] Administration Clopidogrel Bisulfate 75 mg 06/12/21 10:00 06/14/21 12:01 Clopidogrel Bisulfate 75 Mg Tablet PO 07/12/21 09:59 75 mg DAILY [place] Administration Gabapentin 600 mg 06/11/21 22:00 06/14/21 21:22 Gabapentin 300 Mg Capsule PO 07/11/21 21:59 600 mg HS [place] Administration Gabapentin 300 mg 06/12/21 08:00 06/14/21 16:50 Gabapentin 300 Mg Capsule PO 07/12/21 07:59 300 mg TID@0800,1300,1700 [place] Administration Glipizide 5 mg 06/12/21 08:00 06/14/21 16:49 Glipizide 5 Mg Tablet PO 07/12/21 07:59 5 mg BIDWM [place] Administration Azithromycin 500 mg in 250 mls @ 250 mls/hr 06/12/21 10:00 06/14/21 11:17 Zithromax 500 Mg/ 250 Ml Nacl Premix IV 07/12/21 09:59 250 mls/hr Q24H10 [place] Administration Ceftriaxone Sodium/Dextrose 1 g in 50 mls @ 100 mls/hr 06/12/21 10:00 06/14/21 10:33 Rocephin 1 Gm-D5w 50 Ml Bag IV 06/16/21 09:59 100 mls/hr Q24H10 [place] Administration Sodium Chloride 1,000 mls @ 150 mls/hr 06/14/21 14:30 06/14/21 22:28 Sodium Chloride 0.9% 1000 Ml IV 07/14/21 14:29 Not Given .Q6H40M [place] Insulin Human Lispro 0 unit 06/11/21 12:54 06/13/21 21:58 Insulin Lispro 1 Unit SQ 07/11/21 12:53 3 unit UD PRN Administration HYPERGLYCEMIA Metformin HCl 500 mg 06/12/21 08:00 06/14/21 16:50 Metformin Hcl 500 Mg Tablet PO 07/11/21 21:59 500 mg BIDWM [place] Administration Mupirocin 1 gm 06/11/21 22:00 06/14/21 21:23 Mupirocin 22 Gm Tube Ointment TP 07/11/21 21:59 1 gm BID [place] Administration Ondansetron HCl 4 mg 06/11/21 12:54 Ondansetron Hcl 4 Mg/2 Ml Vial IV 07/11/21 12:53 Q6H PRN PRN NAUSEA/VOMITING Pantoprazole Sodium 40 mg 06/12/21 10:00 06/14/21 10:33 Pantoprazole 40 Mg Vial IV 07/12/21 09:59 40 mg Q24H10 [place] Administration Patient Own Med: 1 each 06/12/21 22:00 06/14/21 21:22 Nortriptyline 10 Mg PO 07/12/21 21:59 1 each Cap HS [place] Administration Fluticasone/Salmeterol 2 puff 06/12/21 07:00 06/14/21 19:20 Fluticasone/Salmeterol /21 - 120 Puff Common Canister 07/12/21 06:59 2 puff BIDRT [place] Administration Simvastatin 40 mg 06/12/21 10:00 06/14/21 12:02 Simvastatin 20 Mg Tablet PO 07/12/21 09:59 Not Given DAILY [place] Discontinued Medications Generic Name Dose Route Start Last Admin Trade Name Freq PRN Reason Stop Dose Admin Albuterol/Ipratropium 3 ml 06/11/21 09:22 06/11/21 10:10 Ipratropium/Albuterol Sulfate 3 Ml Ampul.Neb 06/11/21 09:23 3 ml STAT ONE Administration Albuterol/Ipratropium Confirm 06/11/21 10:08 Ipratropium/Albuterol Sulfate 3 Ml Ampul.Neb Administered 06/11/21 10:09 Dose 3 ml IH .STK-MED ONE Albuterol/Ipratropium 3 ml 06/11/21 13:00 Ipratropium/Albuterol Sulfate 3 Ml Ampul.Neb 07/11/21 12:59 Q6HRT [place] Aspirin 324 mg 06/11/21 12:38 06/11/21 14:12 Aspirin 81 Mg Tab.Chew PO 06/11/21 12:39 324 mg STAT ONE Administration Methylprednisolone Sodium 0 mg 06/11/21 09:21 06/11/21 09:33 Succinate 125 mg/ Sterile IV 06/11/21 09:22 125 mg Water 2 ml STAT ONE Administration Methylprednisolone Sodium 0 mg 06/11/21 18:00 06/13/21 05:39 Succinate 60 mg/ Sterile Water IV 07/11/21 17:59 60 mg 2 ml Q6HT [place] Administration Glipizide 5 mg 06/11/21 22:00 Glipizide 5 Mg Tablet PO 07/11/21 21:59 BID [place] Azithromycin 500 mg in 250 mls @ 250 mls/hr 06/11/21 09:21 06/11/21 11:09 Zithromax 500 Mg/ 250 Ml Nacl Premix IV 06/11/21 10:20 Infused STAT STA Infusion Ceftriaxone Sodium/Dextrose 2 g in 50 mls @ 100 mls/hr 06/11/21 09:23 06/11/21 11:09 Rocephin 2 Gm-D5w 50ml Bag IV 06/11/21 09:52 Infused STAT STA Infusion Sodium Chloride 1,000 mls @ 100 mls/hr 06/11/21 09:30 06/12/21 00:24 Sodium Chloride 0.9% 1000 Ml IV 07/11/21 09:29 100 mls/hr .Q10H [place] Administration Azithromycin Confirm 06/11/21 09:55 Zithromax 500 Mg/ 250 Ml Nacl Premix Administered 06/11/21 09:56 Dose 500 mg in 250 mls @ ud IV .STK-MED ONE Ceftriaxone Sodium/Dextrose Confirm 06/11/21 09:55 Rocephin 2 Gm-D5w 50ml Bag Administered 06/11/21 09:56 Dose 2 g in 50 mls @ ud IV .STK-MED ONE Dextrose/Sodium Chloride 1,000 mls @ 50 mls/hr 06/13/21 06:45 06/14/21 03:18 Dextrose 5% -0.45 Nacl 1000 Ml IV 07/13/21 06:44 Not Given .Q20H [place] Sodium Chloride 1,000 mls @ 100 mls/hr 06/13/21 19:30 06/14/21 14:07 Sodium Chloride 0.9% 1000 Ml IV 07/13/21 19:29 100 mls/hr .Q10H [place] Administration Metformin HCl 500 mg 06/11/21 22:00 06/11/21 20:04 Metformin Hcl 500 Mg Tablet PO 07/11/21 21:59 500 mg BID [place] Administration Methylprednisolone Sodium Succinate Confirm 06/11/21 09:32 Methylprednis Sod Succ 125 Mg/2 Ml Vial Administered 06/11/21 09:33 Dose 125 mg .ROUTE .STK-MED ONE Metoprolol Tartrate 50 mg 06/11/21 22:00 06/12/21 21:36 Metoprolol Tartrate 50 Mg Tablet PO 07/11/21 21:59 50 mg BID [place] Administration Non-Formulary Medication 1 inh 06/12/21 10:00 Fluticasone/Umeclidin/Vilanter [Trelegy Ellipta 100-62.5-25] PO 07/12/21 09:59 DAILY [place] Nortriptyline HCl 10 mg 06/11/21 22:00 06/11/21 20:27 Nortriptyline Hcl 50 Mg Capsule PO 07/11/21 21:59 10 mg HS [place] Administration Sterile Water Confirm 06/11/21 09:32 Water For Injection,Sterile 10 Ml Vial Administered 06/11/21 09:33 Dose 10 ml IJ .STK-MED ONE Lab/Rad Data: Laboratory Result Diagrams 06/12/21 05:15 06/12/21 05:15 Laboratory Results 06/12/21 06/12/21 06/11/21 Range/Units 05:15 05:15 21:29 WBC 7.5 (4.0-10.5) K/mm3 RBC 4.07 L (4.1-5.6) M/mm3 Hgb 12.7 (12.5-18.0) gm/dl Hct 45.5 (42-50) % MCV 111.8 H (78-100) fl MCH 31.2 (26-32) pg MCHC 27.9 L (32-36) g/dl RDW 16.1 H (11.5-14.0) % Plt Count 269 (150-450) K/mm3 MPV 9.8 (7.5-11.0) fl Gran % 92.3 H (36.0-66.0) % Eos # (Auto) 0 (0-0.5) Absolute Lymphs (auto) 0.40 L (1.0-4.6) Absolute Monos (auto) 0.17 (0.0-1.3) Lymphocytes % 5.3 L (24.0-44.0) % Monocytes % 2.3 (0.0-12.0) % Eosinophils % 0.0 (0.00-5.0) % Basophils % 0.1 (0.0-0.4) % Absolute Granulocytes 6.94 H (1.4-6.9) Basophils # 0.01 (0-0.4) Puncture Site pCO2 (35-45) mmHg pO2 (75-100) mmHg Base Excess (-2.0-2.0) O2 Saturation (94-100) g/dF ABG pH (7.35-7.45) ABG HCO3 (22-28) ABG O2 Sat (Measured) (95-100) % Sandro Test A-a Gradient a/A Ratio Hemoglobin Carboxyhemoglobin (0.0-6.9) % THgb Methemoglobin (1.4-1.5) % Potassium 5.4 H (3.5-5.1) Temperature C POC O2 Flow Rate % Sodium 145 (137-145) mmol/L Chloride 100 (98-107) mmol/L Carbon Dioxide 37 H (22-30) mmol/L Anion Gap 12.6 (5-15) MEQ/L BUN 35 H (9-20) mg/dL Creatinine 0.90 (0.66-1.25) mg/dL Estimated GFR > 60.0 ML/MIN Glucose 212 H (74-106) mg/dL POC Glucometer (74 to 106) mg/dL Lactic Acid (0.4-2.0) Calcium 8.9 (8.4-10.2) mg/dL Total Bilirubin 0.50 (0.2-1.3) mg/dL AST 17 (17-59) U/L ALT 11 (0-50) U/L Alkaline Phosphatase 72 (38-126) U/L Troponin I 0.033 (0.000-0.034) ng/mL Serum Total Protein 7.0 (6.3-8.2) g/dL Albumin 3.3 L (3.5-5.0) g/dL Urine Color (YELLOW) Urine Appearance (CLEAR) Urine pH (5-6) Ur Specific [place] (1.005-1.025) Urine Protein (Negative) Urine Ketones (NEGATIVE) Urine Blood (0-5) Fredy/ul Urine Nitrite (NEGATIVE) Urine Bilirubin (NEGATIVE) Urine Urobilinogen (0-1) mg/dL Ur Leukocyte Esterase (NEGATIVE) Urine WBC (Auto) (0-5) /HPF Urine RBC (Auto) (0-2) /HPF U Epithel Cells (Auto) (FEW) /HPF Urine Bacteria (Auto) (NEGATIVE) /HPF Urine Mucus (Auto) (NEGATIVE) /HPF Urine Culture Reflexed (NO) Urine Glucose (NEGATIVE) mg/dL SARS-CoV-2 (PCR) (NEGATIVE) Slides for Path Review YES 06/11/21 06/11/21 06/11/21 Range/Units 20:14 18:49 15:28 WBC (4.0-10.5) K/mm3 RBC (4.1-5.6) M/mm3 Hgb (12.5-18.0) gm/dl Hct (42-50) % MCV (78-100) fl MCH (26-32) pg MCHC (32-36) g/dl RDW (11.5-14.0) % Plt Count (150-450) K/mm3 MPV (7.5-11.0) fl Gran % (36.0-66.0) % Eos # (Auto) (0-0.5) Absolute Lymphs (auto) (1.0-4.6) Absolute Monos (auto) (0.0-1.3) Lymphocytes % (24.0-44.0) % Monocytes % (0.0-12.0) % Eosinophils % (0.00-5.0) % Basophils % (0.0-0.4) % Absolute Granulocytes (1.4-6.9) Basophils # (0-0.4) Puncture Site pCO2 (35-45) mmHg pO2 (75-100) mmHg Base Excess (-2.0-2.0) O2 Saturation (94-100) g/dF ABG pH (7.35-7.45) ABG HCO3 (22-28) ABG O2 Sat (Measured) (95-100) % Sandro Test A-a Gradient a/A Ratio Hemoglobin Carboxyhemoglobin (0.0-6.9) % THgb Methemoglobin (1.4-1.5) % Potassium (3.5-5.1) Temperature C POC O2 Flow Rate % Sodium (137-145) mmol/L Chloride (98-107) mmol/L Carbon Dioxide (22-30) mmol/L Anion Gap (5-15) MEQ/L BUN (9-20) mg/dL Creatinine (0.66-1.25) mg/dL Estimated GFR ML/MIN Glucose (74-106) mg/dL POC Glucometer 419 H (74 to 106) mg/dL Lactic Acid (0.4-2.0) Calcium (8.4-10.2) mg/dL Total Bilirubin (0.2-1.3) mg/dL AST (17-59) U/L ALT (0-50) U/L Alkaline Phosphatase (38-126) U/L Troponin I 0.033 0.034 (0.000-0.034) ng/mL Serum Total Protein (6.3-8.2) g/dL Albumin (3.5-5.0) g/dL Urine Color (YELLOW) Urine Appearance (CLEAR) Urine pH (5-6) Ur Specific [place] (1.005-1.025) Urine Protein (Negative) Urine Ketones (NEGATIVE) Urine Blood (0-5) Fredy/ul Urine Nitrite (NEGATIVE) Urine Bilirubin (NEGATIVE) Urine Urobilinogen (0-1) mg/dL Ur Leukocyte Esterase (NEGATIVE) Urine WBC (Auto) (0-5) /HPF Urine RBC (Auto) (0-2) /HPF U Epithel Cells (Auto) (FEW) /HPF Urine Bacteria (Auto) (NEGATIVE) /HPF Urine Mucus (Auto) (NEGATIVE) /HPF Urine Culture Reflexed (NO) Urine Glucose (NEGATIVE) mg/dL SARS-CoV-2 (PCR) (NEGATIVE) Slides for Path Review 06/11/21 06/11/21 06/11/21 Range/Units 11:55 10:37 09:29 WBC (4.0-10.5) K/mm3 RBC (4.1-5.6) M/mm3 Hgb (12.5-18.0) gm/dl Hct (42-50) % MCV (78-100) fl MCH (26-32) pg MCHC (32-36) g/dl RDW (11.5-14.0) % Plt Count (150-450) K/mm3 MPV (7.5-11.0) fl Gran % (36.0-66.0) % Eos # (Auto) (0-0.5) Absolute Lymphs (auto) (1.0-4.6) Absolute Monos (auto) (0.0-1.3) Lymphocytes % (24.0-44.0) % Monocytes % (0.0-12.0) % Eosinophils % (0.00-5.0) % Basophils % (0.0-0.4) % Absolute Granulocytes (1.4-6.9) Basophils # (0-0.4) Puncture Site pCO2 (35-45) mmHg pO2 (75-100) mmHg Base Excess (-2.0-2.0) O2 Saturation (94-100) g/dF ABG pH (7.35-7.45) ABG HCO3 (22-28) ABG O2 Sat (Measured) (95-100) % Sandro Test A-a Gradient a/A Ratio Hemoglobin Carboxyhemoglobin (0.0-6.9) % THgb Methemoglobin (1.4-1.5) % Potassium (3.5-5.1) Temperature C POC O2 Flow Rate % Sodium (137-145) mmol/L Chloride (98-107) mmol/L Carbon Dioxide (22-30) mmol/L Anion Gap (5-15) MEQ/L BUN (9-20) mg/dL Creatinine (0.66-1.25) mg/dL Estimated GFR ML/MIN Glucose (74-106) mg/dL POC Glucometer (74 to 106) mg/dL Lactic Acid (0.4-2.0) Calcium (8.4-10.2) mg/dL Total Bilirubin (0.2-1.3) mg/dL AST (17-59) U/L ALT (0-50) U/L Alkaline Phosphatase (38-126) U/L Troponin I 0.041 H* (0.000-0.034) ng/mL Serum Total Protein (6.3-8.2) g/dL Albumin (3.5-5.0) g/dL Urine Color LOLIS (YELLOW) Urine Appearance CLOUDY (CLEAR) Urine pH 5.0 (5-6) Ur Specific [place] 1.021 (1.005-1.025) Urine Protein 100 (Negative) Urine Ketones TRACE (NEGATIVE) Urine Blood LARGE (0-5) Fredy/ul Urine Nitrite NEGATIVE (NEGATIVE) Urine Bilirubin NEGATIVE (NEGATIVE) Urine Urobilinogen 4 (0-1) mg/dL Ur Leukocyte Esterase NEGATIVE (NEGATIVE) Urine WBC (Auto) 6-10 (0-5) /HPF Urine RBC (Auto) 51-100 (0-2) /HPF U Epithel Cells (Auto) FEW (FEW) /HPF Urine Bacteria (Auto) RARE (NEGATIVE) /HPF Urine Mucus (Auto) SLIGHT (NEGATIVE) /HPF Urine Culture Reflexed YES (NO) Urine Glucose 50 (NEGATIVE) mg/dL SARS-CoV-2 (PCR) NEGATIVE (NEGATIVE) Slides for Path Review 06/11/21 06/11/21 06/11/21 Range/Units 09:25 09:25 09:25 WBC 7.2 (4.0-10.5) K/mm3 RBC 4.11 (4.1-5.6) M/mm3 Hgb 13.0 (12.5-18.0) gm/dl Hct 45.2 (42-50) % MCV 110.0 H (78-100) fl MCH 31.6 (26-32) pg MCHC 28.8 L (32-36) g/dl RDW 15.9 H (11.5-14.0) % Plt Count 253 (150-450) K/mm3 MPV 9.5 (7.5-11.0) fl Gran % 84.3 H (36.0-66.0) % Eos # (Auto) 0.07 (0-0.5) Absolute Lymphs (auto) 0.45 L (1.0-4.6) Absolute Monos (auto) 0.58 (0.0-1.3) Lymphocytes % 6.3 L (24.0-44.0) % Monocytes % 8.1 (0.0-12.0) % Eosinophils % 1.0 (0.00-5.0) % Basophils % 0.3 (0.0-0.4) % Absolute Granulocytes 6.08 (1.4-6.9) Basophils # 0.02 (0-0.4) Puncture Site pCO2 (35-45) mmHg pO2 (75-100) mmHg Base Excess (-2.0-2.0) O2 Saturation (94-100) g/dF ABG pH (7.35-7.45) ABG HCO3 (22-28) ABG O2 Sat (Measured) (95-100) % Sandro Test A-a Gradient a/A Ratio Hemoglobin Carboxyhemoglobin (0.0-6.9) % THgb Methemoglobin (1.4-1.5) % Potassium 5.0 (3.5-5.1) Temperature C POC O2 Flow Rate % Sodium 142 (137-145) mmol/L Chloride 95 L (98-107) mmol/L Carbon Dioxide 40 H (22-30) mmol/L Anion Gap 12.4 (5-15) MEQ/L BUN 34 H (9-20) mg/dL Creatinine 0.91 (0.66-1.25) mg/dL Estimated GFR > 60.0 ML/MIN Glucose 306 H (74-106) mg/dL POC Glucometer (74 to 106) mg/dL Lactic Acid (0.4-2.0) Calcium 9.3 (8.4-10.2) mg/dL Total Bilirubin 0.80 (0.2-1.3) mg/dL AST 19 (17-59) U/L ALT 11 (0-50) U/L Alkaline Phosphatase 88 (38-126) U/L Troponin I 0.046 H* (0.000-0.034) ng/mL Serum Total Protein 7.6 (6.3-8.2) g/dL Albumin 3.7 (3.5-5.0) g/dL Urine Color (YELLOW) Urine Appearance (CLEAR) Urine pH (5-6) Ur Specific [place] (1.005-1.025) Urine Protein (Negative) Urine Ketones (NEGATIVE) Urine Blood (0-5) Fredy/ul Urine Nitrite (NEGATIVE) Urine Bilirubin (NEGATIVE) Urine Urobilinogen (0-1) mg/dL Ur Leukocyte Esterase (NEGATIVE) Urine WBC (Auto) (0-5) /HPF Urine RBC (Auto) (0-2) /HPF U Epithel Cells (Auto) (FEW) /HPF Urine Bacteria (Auto) (NEGATIVE) /HPF Urine Mucus (Auto) (NEGATIVE) /HPF Urine Culture Reflexed (NO) Urine Glucose (NEGATIVE) mg/dL SARS-CoV-2 (PCR) (NEGATIVE) Slides for Path Review YES 06/11/21 06/11/21 Range/Units 09:23 09:23 WBC (4.0-10.5) K/mm3 RBC (4.1-5.6) M/mm3 Hgb (12.5-18.0) gm/dl Hct (42-50) % MCV (78-100) fl MCH (26-32) pg MCHC (32-36) g/dl RDW (11.5-14.0) % Plt Count (150-450) K/mm3 MPV (7.5-11.0) fl Gran % (36.0-66.0) % Eos # (Auto) (0-0.5) Absolute Lymphs (auto) (1.0-4.6) Absolute Monos (auto) (0.0-1.3) Lymphocytes % (24.0-44.0) % Monocytes % (0.0-12.0) % Eosinophils % (0.00-5.0) % Basophils % (0.0-0.4) % Absolute Granulocytes (1.4-6.9) Basophils # (0-0.4) Puncture Site RIGHT RADIAL pCO2 78 H* (35-45) mmHg pO2 90 (75-100) mmHg Base Excess 11.7 H (-2.0-2.0) O2 Saturation 95.2 (94-100) g/dF ABG pH 7.33 L (7.35-7.45) ABG HCO3 41.1 H* (22-28) ABG O2 Sat (Measured) 97.8 (95-100) % Sandro Test YES A-a Gradient 69 a/A Ratio 0.57 Hemoglobin 13.2 Carboxyhemoglobin 1.8 (0.0-6.9) % THgb Methemoglobin 0.8 L (1.4-1.5) % Potassium 4.8 (3.5-5.1) Temperature 37.0 C POC O2 Flow Rate 36 % Sodium (137-145) mmol/L Chloride (98-107) mmol/L Carbon Dioxide (22-30) mmol/L Anion Gap (5-15) MEQ/L BUN (9-20) mg/dL Creatinine (0.66-1.25) mg/dL Estimated GFR ML/MIN Glucose (74-106) mg/dL POC Glucometer (74 to 106) mg/dL Lactic Acid 1.1 (0.4-2.0) Calcium (8.4-10.2) mg/dL Total Bilirubin (0.2-1.3) mg/dL AST (17-59) U/L ALT (0-50) U/L Alkaline Phosphatase (38-126) U/L Troponin I (0.000-0.034) ng/mL Serum Total Protein (6.3-8.2) g/dL Albumin (3.5-5.0) g/dL Urine Color (YELLOW) Urine Appearance (CLEAR) Urine pH (5-6) Ur Specific [place] (1.005-1.025) Urine Protein (Negative) Urine Ketones (NEGATIVE) Urine Blood (0-5) Fredy/ul Urine Nitrite (NEGATIVE) Urine Bilirubin (NEGATIVE) Urine Urobilinogen (0-1) mg/dL Ur Leukocyte Esterase (NEGATIVE) Urine WBC (Auto) (0-5) /HPF Urine RBC (Auto) (0-2) /HPF U Epithel Cells (Auto) (FEW) /HPF Urine Bacteria (Auto) (NEGATIVE) /HPF Urine Mucus (Auto) (NEGATIVE) /HPF Urine Culture Reflexed (NO) Urine Glucose (NEGATIVE) mg/dL SARS-CoV-2 (PCR) (NEGATIVE) Slides for Path Review - Progress Progress: improved, re-examined Discussed with Dr.: Celia Will see patient in: hospital (observation) Counseled pt/family regarding: lab results, diagnosis, rad results - Departure Departure Disposition: Observation Clinical Impression: Acute UTI, Elevated troponin Respiratory failure Qualifiers: Chronicity: acute on chronic Respiratory failure complication: hypoxia and hypercapnia Qualified Code(s): J96.21 - Acute and chronic respiratory failure with hypoxia Bilateral pneumonia Qualifiers: Pneumonia type: due to unspecified organism Lung location: unspecified part of lung Qualified Code(s): J18.9 - Pneumonia, unspecified organism Condition: Stable Critical Care Time: No
[2021-06-11 11:15] LABS: Slide Review 1 YES
[2021-06-11] MEDS ORDERED: BABY ASPIRIN 81 MG CHEW PO ONE (12:38)
[2021-06-11] MEDS ORDERED: Zofran 4 MG/2 ML VIAL IV PRN (12:54)
[2021-06-11] MEDS ORDERED: TYLENOL 325 MG PO PRN (12:54)
[2021-06-11] MEDS ORDERED: DUONEB 0.5-3 MG/3 ml Neb IH SCH (13:00)
[2021-06-11] MEDS: solu-MEDROL 60 MG, Sterile H2O 10 ml 2 ML IV SCH ×4 (17:55→23:35)
--- NOTE | 2021-06-11 18:24 | XRAY ---
Indication: Status post fall. Comparison: July 27, 2019. Portable chest now demonstrates diffuse bilateral consolidating/nonconsolidating airspace disease with small bibasilar effusions. Cardiac silhouette obscured again demonstrating CABG surgery. Bony thorax intact again with osteopenia and degenerative changes.
--- NOTE | 2021-06-11 18:25 | XRAY ---
Indication: Acute mental status change. Status post fall. Multiple contiguous axial images obtained through the head without contrast. Comparison: None Age-appropriate global atrophy with minimal periventricular degenerative micro-ischemia.. No acute intracranial hemorrhage, abnormal normal extra-axial fluid collection, or mass effect. Fourth ventricle is midline without hydrocephalus. Cooney-white matter differentiation preserved. Bony calvarium intact. Visualized paranasal sinuses and mastoid air cells are clear. Impression: Nonacute senile brain. Comment: Preliminary interpretation may by [facility]. No critical discrepancy.
--- NOTE | 2021-06-11 18:28 | XRAY ---
Indication: Acute mental status change. Status post fall. Multiple contiguous axial images obtained through the cervical spine. Sagittal and coronal reformatted images obtained. Comparison: None Osseous structures demineralized consistent with patient's age. Axial images negative for acute fracture, suspicious bony lesions, or spinal canal stenosis. Moderate atlantoaxial degenerative changes. Mild/moderate multilevel bilateral degenerative facet hypertrophy. Sagittal and coronal reformatted images demonstrate normal alignment with vertebral body heights/disc spaces maintained. No acute fracture, subluxation, or jumped facet. Normal appearing craniocervical junction. Visualized noncontrasted soft tissues demonstrates moderate carotid calcifications bilaterally. Chest reported separately. Impression: 1. Negative acute fracture/subluxation. 2. Osteopenia and multilevel degenerative changes. Comment: Preliminary interpretation may by [facility]. No critical discrepancy.
[2021-06-11] MEDS: NEURONTIN 300 MG PO SCH (20:04)
[2021-06-11] MEDS: Lopressor 50 MG PO SCH (20:06)
[2021-06-11] MEDS: Bactroban OINTMENT TP SCH (20:10)
[2021-06-11] MEDS: HUMALOG SQ PRN (20:20)
[2021-06-11] MEDS: NORTRIPTYLINE HCL PO SCH (20:27)
[2021-06-11] MEDS ORDERED: Glucotrol 5 MG PO SCH (22:00)
[2021-06-11] MEDS ORDERED: Glucophage 500 MG PO SCH (22:00)
[2021-06-12] MEDS: Sodium Chloride 0.9% 1000 ML 1,000 ML IV SCH (00:24)
[2021-06-12] MEDS: solu-MEDROL 60 MG, Sterile H2O 10 ml 2 ML IV SCH ×8 (05:37→23:52)
[2021-06-12 06:03] LABS: Absolute Neutrophil Ct (ANC) 6.94 (1.4-6.9); BASOPHIL % 0.1 % (0.0-0.4); Basophil (Absolute #) 0.01 (0-0.4); Eosinophil (Absolute #) 0 (0-0.5); Hematocrit 45.5 % (42-50); Hemoglobin 12.7 gm/dl (12.5-18.0); Lymphocytes % 5.3 % (24.0-44.0); Mean Cell Volume 111.8 fl (78-100); Mean Corpuscular Hemoglobin 31.2 pg (26-32); Mean Corpuscular Hgb Concent. 27.9 g/dl (32-36); Mean Platelet Volume 9.8 fl (7.5-11.0); Monocyte (Absolute #) 0.17 (0.0-1.3); Monocytes % 2.3 % (0.0-12.0); Neutrophil % 92.3 % (36.0-66.0); Platelet Count 269 K/mm3 (150-450); Red Blood Count 4.07 M/mm3 (4.1-5.6); Red Cell Distribution Width 16.1 % (11.5-14.0); White Blood Count 7.5 K/mm3 (4.0-10.5)
[2021-06-12 06:31] LABS: ALBUMIN 3.3 g/dL (3.5-5.0); ALKALINE PHOSPHATASE 72 U/L (38-126); ANION GAP 12.6 MEQ/L (5-15); BLOOD UREA NITROGEN 35 mg/dL (9-20); CHLORIDE 100 mmol/L (98-107); Calcium 8.9 mg/dL (8.4-10.2); Carbon Dioxide 37 mmol/L (22-30); EST GLOMERULAR FILTRATION RATE > 60.0 ML/MIN; Glucose 212 mg/dL (74-106); Potassium 5.4 mmol/L (3.5-5.1); SGOT/AST 17 U/L (17-59); SGPT/ALT 11 U/L (0-50); SODIUM 145 mmol/L (137-145)
[2021-06-12 07:27] LABS: VBG BASE EXCESS 7.4 (-2.0-2.0); VBG HCO3- 35.9 meq/L (22-28); VBG HEMOGLOBIN 12.3; VBG O2 SATURATION 97.3 (95-100); VBG POTASSIUM 5.1 (3.5-5.1)
[2021-06-12 07:28] LABS: VBG pH 7.33 (7.32-7.42)
[2021-06-12] MEDS: Advair Hfa 115/21 Common canister IH SCH ×2 (07:58→18:04)
[2021-06-12] MEDS: Glucophage 500 MG PO SCH ×2 (08:44→17:31)
[2021-06-12] MEDS: Glucotrol 5 MG PO SCH ×2 (08:44→17:31)
[2021-06-12 09:52] LABS: Slide Review 1 YES
[2021-06-12] MEDS ORDERED: NON-FORMULARY ITEM (Simvastatin [Zocor] 40 MG Tablet) PO SCH (10:00)
[2021-06-12] MEDS ORDERED: NON-FORMULARY ITEM (Fluticasone/Umeclidin/Vilanter [Trelegy Ellipta 100-62.5-25] 1 EACH Bl PO SCH (10:00)
[2021-06-12] MEDS: HUMALOG SQ PRN ×3 (10:41→21:38)
[2021-06-12] MEDS: ECOTRIN 81 MG PO SCH (10:43)
[2021-06-12] MEDS: ZOCOR 20MG PO SCH (10:43)
[2021-06-12] MEDS: PLAVIX 75 MG Tablet PO SCH (10:44)
[2021-06-12] MEDS: Lopressor 50 MG PO SCH ×2 (10:44→21:36)
[2021-06-12] MEDS: PROTONIX 40 MG IV IV SCH (10:44)
[2021-06-12] MEDS: Zithromax 500 MG/ 250 ML NaCl Premix 500 MG/250 ML IVPB IV SCH (11:45)
[2021-06-12] MEDS: NEURONTIN 300 MG PO SCH ×4 (11:45→21:36)
[2021-06-12] MEDS: ROCEPHIN 1 Gm-D5w 50 ml Bag** 1 G/50 ML IVPB IV SCH (11:45)
[2021-06-12] MEDS: Bactroban OINTMENT TP SCH ×2 (12:50→21:36)
[2021-06-12] MEDS: PATIENT OWN MEDICATION PO SCH (21:36)
[2021-06-13] MEDS: solu-MEDROL 60 MG, Sterile H2O 10 ml 2 ML IV SCH ×2 (05:39)
[2021-06-13 06:43] LABS: Absolute Neutrophil Ct (ANC) 14.99 (1.4-6.9); BASOPHIL % 0.1 % (0.0-0.4); Basophil (Absolute #) 0.01 (0-0.4); Eosinophil (Absolute #) 0 (0-0.5); Hematocrit 43.5 % (42-50); Hemoglobin 12.6 gm/dl (12.5-18.0); Lymphocyte (Absolute #) 0.47 (1.0-4.6); Mean Cell Volume 111.3 fl (78-100); Mean Corpuscular Hemoglobin 32.2 pg (26-32); Mean Platelet Volume 10.1 fl (7.5-11.0); Monocyte (Absolute #) 0.44 (0.0-1.3); Monocytes % 2.8 % (0.0-12.0); Neutrophil % 94.1 % (36.0-66.0); Platelet Count 260 K/mm3 (150-450); Red Blood Count 3.91 M/mm3 (4.1-5.6); Red Cell Distribution Width 16.4 % (11.5-14.0); White Blood Count 15.9 K/mm3 (4.0-10.5)
[2021-06-13 06:48] LABS: ALBUMIN 3.4 g/dL (3.5-5.0); ANION GAP 10.5 MEQ/L (5-15); BILIRUBIN,TOTAL 0.7 mg/dL (0.2-1.3); Calcium 9.1 mg/dL (8.4-10.2); Creatinine 1 1.39 mg/dL (0.66-1.25); EST GLOMERULAR FILTRATION RATE 51.7 ML/MIN; Potassium 5.8 mmol/L (3.5-5.1); Total Protein 7.3 g/dL (6.3-8.2)
[2021-06-13] MEDS: Advair Hfa 115/21 Common canister IH SCH ×2 (07:06→19:28)
[2021-06-13 07:09] LABS: Slide Review 1 YES
[2021-06-13] MEDS: Glucophage 500 MG PO SCH ×2 (07:38→16:41)
[2021-06-13] MEDS: Glucotrol 5 MG PO SCH ×2 (07:38→16:41)
[2021-06-13] MEDS: NEURONTIN 300 MG PO SCH ×4 (07:38→22:00)
[2021-06-13 08:39] LABS: VBG CARBOXYHEMOGLOBIN 1.3 % T HGB (0.0-6.9); VBG HCO3- 39.9 meq/L (22-28); VBG HEMOGLOBIN 11.6; VBG O2 SATURATION 90.8 (95-100); VBG POTASSIUM 5.7 (3.5-5.1); VBG pH 7.3 (7.32-7.42)
--- NOTE | 2021-06-13 09:14 | XRAY ---
Indication: Pneumonia. Comparison: June 11, 2021. PA/lateral chest demonstrates mild clearing of upper lung hoffman with probable stable moderate bibasilar infiltrates/atelectasis/effusions. Heart is enlarged again with CABG. No new cardiopulmonary abnormalities.
[2021-06-13] MEDS: ROCEPHIN 1 Gm-D5w 50 ml Bag** 1 G/50 ML IVPB IV SCH (10:25)
[2021-06-13] MEDS: ZOCOR 20MG PO SCH (10:25)
[2021-06-13] MEDS: PROTONIX 40 MG IV IV SCH (10:25)
[2021-06-13] MEDS: PLAVIX 75 MG Tablet PO SCH (10:25)
[2021-06-13] MEDS: Zithromax 500 MG/ 250 ML NaCl Premix 500 MG/250 ML IVPB IV SCH (10:25)
[2021-06-13] MEDS: ECOTRIN 81 MG PO SCH (10:26)
[2021-06-13] MEDS: Bactroban OINTMENT TP SCH ×2 (10:32→22:01)
[2021-06-13] MEDS: Dextrose 5% -0.45 NaCl 1000 ML 1,000 ML IV SCH (11:29)
--- NOTE | 2021-06-13 12:20 | HP ---
CHIEF COMPLAINT: Weakness, mental status changes with confusion. HISTORY OF PRESENT ILLNESS: The patient had apparently became sick over the past couple of days prior to admission to hospital. His has dementia was with it enough to be able to call his daughter. She brought him into the emergency room. The patient was noted to have O2 saturations dropping into 70's despite 4 liters of oxygen by nasal cannula. The patient had decreased oral intake and had multiple falls over the past few days. The patient does ambulate with a walker at his baseline. PAST MEDICAL/SURGICAL HISTORY: Significant for coronary artery bypass graft and cardiac catheterization. He had skin cancer removed from his face and bone removed from the left side of the face from this. He has diabetes mellitus type II, anxiety, hyperlipidemia, hypertension, peripheral neuropathy. HOME MEDICATIONS: Aspirin 81 mg a day, Metformin 500 mg twice daily, gabapentin 300 mg at night, Glipizide 5 mg b.i.d., nortriptyline 10 mg at night, Plavix 75 mg daily. He is on Trelegy Ellipta for chronic obstructive pulmonary disease. He is on metoprolol 50 mg b.i.d., mupirocin to decubitus ulcer that is pretty stable. Zocor 40 mg a day. ALLERGIES: MORPHINE. PHYSICAL EXAMINATION: The patient's vital signs on admission showed his temperature to be 97.5F, pulse 91, respiratory rate 24 and blood pressure 139/92. O2 saturation was 88%. HEENT: Normocephalic, atraumatic. The patient does have previous history of having some facial surgery which does cause him to be difficult to be understood at times. His oropharynx is quite dry presently. NECK: Supple without lymphadenopathy, thyromegaly or JVD. CHEST: Essentially clear at this time. HEART: Regular rate and rhythm without significant murmurs, rubs or gallops heard. ABDOMEN: Scaphoid. No palpable masses. EXTREMITIES: Without cyanosis, clubbing or edema. NEUROLOGIC: The patient appears to be somewhat confused to place and date. LAB DATA AND TESTS: He had laboratory studies in the emergency room which showed troponin to be slightly elevated at 0.046. His glucose is 306, BUN 34, creatinine 0.91. He had essentially normal electrolytes and liver enzyme studies. His urine was cloudy, specific gravity 1.021 with 51 to 100 red blood cells and 6-10 white blood cells per high power field. His white count was 7.2, hemoglobin 13.0, PLT count 253,000. His initial ABG showed pH 7.33 and pCO2 of 78, pO2 of 90. Lactic acid 1.1. He had a negative COVID test. His chest x-ray showed some airspace disease which occurring in the basilar areas. ASSESSMENT: A patient with probable developing pneumonia, respiratory failure with his CO2 being elevated. The patient has been admitted to the hospital and initially placed on BiPAP which did help. He was started on antibiotics of Rocephin and Zithromax. He will be monitored closely on the medical [place] with telemetry otherwise.
--- NOTE | 2021-06-13 15:29 | XRAY ---
Indication: Sudden loss of strength in extremities. Conventional contrast enhanced CTA head performed using 100 cc Isovue 370 contrast. Two-dimensional sagittal and coronal reformatted images obtained. Additional 3-dimensional reformatted images obtained using a separate workstation. Comparison: None Parasellar segments of the distal internal carotid arteries demonstrates mild/moderate scattered arteriosclerotic calcifications bilaterally. Both genu and right suprasellar segment demonstrates approximately 80-90% stenosis. Normal carotid terminus with normal branching A1 and M1 segments bilaterally. More distal anterior cerebral and middle cerebral arteries are normal in CTA appearance. Posterior circulation demonstrates dominant distal left vertebral artery with minimal arteriosclerotic calcifications. Normal CTA appearance to the remaining basilar, left/right posterior cerebral, and left/right superior cerebellar arteries. Venous drainage/sinuses are unremarkable. No abnormal enhancing intra or extra-axial mass. Impression: 1. Approximately 80-90% stenosis involving both genu and right suprasellar segments of the internal carotid arteries. 2. Remaining CTA head with contrast exam is negative.
[2021-06-13] MEDS: HUMALOG SQ PRN ×2 (16:40→21:58)
[2021-06-13] MEDS: Sodium Chloride 0.9% 1000 ML 1,000 ML IV SCH (19:26)
[2021-06-13] MEDS: PATIENT OWN MEDICATION PO SCH (22:01)
[2021-06-14] MEDS: Dextrose 5% -0.45 NaCl 1000 ML 1,000 ML IV SCH (03:18)
[2021-06-14] MEDS: Sodium Chloride 0.9% 1000 ML 1,000 ML IV SCH ×4 (03:26→22:28)
[2021-06-14 05:44] LABS: Hemoglobin 11.8 gm/dl (12.5-18.0); Mean Cell Volume 110.8 fl (78-100); Mean Corpuscular Hemoglobin 32.7 pg (26-32); Mean Corpuscular Hgb Concent. 29.5 g/dl (32-36); Platelet Count 224 K/mm3 (150-450); Red Blood Count 3.61 M/mm3 (4.1-5.6); Red Cell Distribution Width 16.7 % (11.5-14.0); White Blood Count 14.6 K/mm3 (4.0-10.5)
[2021-06-14 05:54] LABS: ALBUMIN 3.3 g/dL (3.5-5.0); ANION GAP 12.5 MEQ/L (5-15); BILIRUBIN,TOTAL 0.4 mg/dL (0.2-1.3); Calcium 8.7 mg/dL (8.4-10.2); Creatinine 1 1.5 mg/dL (0.66-1.25); EST GLOMERULAR FILTRATION RATE 47.4 ML/MIN; Potassium 5.3 mmol/L (3.5-5.1); Total Protein 6.8 g/dL (6.3-8.2)
[2021-06-14] MEDS: Advair Hfa 115/21 Common canister IH SCH ×2 (07:16→19:20)
[2021-06-14 07:29] LABS: A-aADO2 57; ABG HEMOGLOBIN 11.2; ABG POTASSIUM 5.4 (3.5-5.1); ARTERIAL BLD GAS O2 SATURATION 83.8 % (95-100); ARTERIAL BLOOD GAS BASE EXCESS 10.9 (-2.0-2.0); ARTERIAL BLOOD GAS FIO2 28 %; ARTERIAL BLOOD GAS PCO2 74 mmHg (35-45); ARTERIAL BLOOD GAS pH 7.34 (7.35-7.45); CARBOXYHEMOGLOBIN 1.3 % THgb (0.0-6.9); HCO3- 39.9 (22-28); HGB O2 SAT 82.4 g/dF (94-100); Methhemoglobin 0.5 % (1.4-1.5)
[2021-06-14 07:30] LABS: ABG SITE LEFT RADIAL; ALLEN TEST OK? yes; ARTERIAL BLOOD GAS PO2 50 mmHg (75-100)
[2021-06-14] MEDS: Glucophage 500 MG PO SCH ×2 (10:30→16:50)
[2021-06-14] MEDS: NEURONTIN 300 MG PO SCH ×4 (10:31→21:22)
[2021-06-14] MEDS: Glucotrol 5 MG PO SCH ×2 (10:31→16:49)
[2021-06-14] MEDS: PROTONIX 40 MG IV IV SCH (10:33)
[2021-06-14] MEDS: ROCEPHIN 1 Gm-D5w 50 ml Bag** 1 G/50 ML IVPB IV SCH (10:33)
[2021-06-14] MEDS: Zithromax 500 MG/ 250 ML NaCl Premix 500 MG/250 ML IVPB IV SCH (11:17)
[2021-06-14] MEDS: Bactroban OINTMENT TP SCH ×2 (12:00→21:23)
[2021-06-14] MEDS: ECOTRIN 81 MG PO SCH (12:01)
[2021-06-14] MEDS: PLAVIX 75 MG Tablet PO SCH (12:01)
[2021-06-14] MEDS: ZOCOR 20MG PO SCH (12:02)
[2021-06-14] MEDS: PATIENT OWN MEDICATION PO SCH (21:22)
[2021-06-15] MEDS: Sodium Chloride 0.9% 1000 ML 1,000 ML IV SCH ×2 (04:08→22:10)
[2021-06-15] MEDS: Advair Hfa 115/21 Common canister IH SCH ×2 (07:03→18:56)
[2021-06-15] MEDS: ROCEPHIN 1 Gm-D5w 50 ml Bag** 1 G/50 ML IVPB IV SCH ×2 (08:27→22:31)
[2021-06-15] MEDS: PROTONIX 40 MG IV IV SCH (08:29)
[2021-06-15] MEDS: Zithromax 500 MG/ 250 ML NaCl Premix 500 MG/250 ML IVPB IV SCH (08:34)
[2021-06-15] MEDS: Glucophage 500 MG PO SCH ×2 (08:37→18:41)
[2021-06-15] MEDS: Glucotrol 5 MG PO SCH ×2 (08:37→18:41)
[2021-06-15] MEDS: PLAVIX 75 MG Tablet PO SCH (08:38)
[2021-06-15] MEDS: ZOCOR 20MG PO SCH (08:39)
[2021-06-15] MEDS: ECOTRIN 81 MG PO SCH (08:39)
[2021-06-15] MEDS: Bactroban OINTMENT TP SCH ×2 (08:41→22:09)
[2021-06-15] MEDS: NEURONTIN 300 MG PO SCH ×4 (08:55→22:09)
--- NOTE | 2021-06-15 18:04 | PCM.NOTE ---
Date and Time: 06/15/211757 Subjective Assessment: Patient is asking to go home. O2 at 10L. Home O2 was 4L. He is being fed by staff,honey thickened liquids and pureed diet . Upper dentures falling down when he opens his mouth,waiting for dtr to bring adhesive. Objective Exam General Appearance: no apparent distress Neurologic Exam: alert Skin Exam: warm, dry (dusky color) Wound Assessment: Skin/Wound Assessment Wound/Incision Assessment Start: 06/13/21 23:13 Text: Status: Active Freq: Q6H Protocol: Document 06/15/21 11:00 AR (Rec: 06/15/21 11:43 AR [id number]) Wound/Incision Assessment Right foot, great outer toe Wound Assessment Shift Assessment Wound Type Pressure Ulcer Wound Stage Unstageable Drainage Amount None Length (cm) (cm) 1 Width (cm) (cm) 1.1 Wound Bed Greatest Portion Black (Eschar) Wound Bed Lesser Portion Black (Eschar) % Eschar (Black) 100 Surrounding Tissue Bright Red Right foot, tip of great toe Wound Assessment Shift Assessment Wound Type Pressure Ulcer Wound Stage Unstageable Drainage Amount None Length (cm) (cm) 0.3 Width (cm) (cm) 0.6 Wound Bed Greatest Portion Black (Eschar) Wound Bed Lesser Portion Black (Eschar) % Eschar (Black) 100 Surrounding Tissue [place] Right foot, tip of 3rd toe Wound Assessment Shift Assessment Wound Type Pressure Ulcer Wound Stage Deep Tissue Injury Drainage Amount None General Appearance Open to air,Clean/Dry Length (cm) (cm) 0.5 Width (cm) (cm) 0.5 Comment Deep purple in color, skin intact, Left inner buttocks Wound Assessment Shift Assessment Wound Type Pressure Ulcer Wound Stage Stage II Drainage Amount None General Appearance Open to air,Clean/Dry Length (cm) (cm) 1.2 Width (cm) (cm) 1 Depth (cm) (cm) 0.1 Wound Bed Greatest Portion Pale [place] Wound Bed Lesser Portion Pale [place] Left foot great toe Wound Assessment Shift Assessment Wound Type Pressure Ulcer Wound Stage Deep Tissue Injury Drainage Amount None General Appearance Open to air,Clean/Dry Length (cm) (cm) 0.3 Width (cm) (cm) 0.3 Comment Deep purple in color and does not [place]lin. Wound Photo Photo Taken No Respiratory Exam: diminished breath sounds Cardiovascular Exam: tachycardia (90 irreg) Gastrointestinal/Abdomen Exam: soft (nontender) Extremity Exam: other (pressure sores toes) OBJECTIVE DATA Vital Signs: Vital Signs - 24 hr Temp Pulse Resp BP Pulse Ox 06/15/21 16:00 97.2 F 95 H 18 138/64 92 L 06/15/21 12:00 97.7 F 82 19 120/57 90 L 06/15/21 10:54 90 L 06/15/21 07:38 97.8 F 80 19 147/84 91 L 06/15/21 07:12 94 L 06/15/21 07:05 94 H 24 78 L 06/15/21 04:00 97.9 F 90 24 128/81 94 L 06/15/21 00:00 97.9 F 82 26 H 130/67 95 06/14/21 23:16 100 06/14/21 19:40 97.9 F 87 30 H 124/64 94 L 06/14/21 19:10 88 25 H 99 Pain Assessment - Last Documented Pain Intensity 0 Intake and Output: Intake & Output 06/13/21 06/14/21 06/15/21 06/16/21 11:59 11:59 11:59 11:59 Intake Total 1240 1550 3840 240 Output Total 500 575 Balance 1240 1050 3265 240 Weight 60.9 kg 66.7 kg 67 kg Lab Results: Lab Results-Last 24 Hours 06/14/21 06/15/21 06/15/21 Range/Units 21:40 07:09 11:47 POC Glucometer 154 H 124 H 133 H (74 to 106) mg/dL 06/15/21 Range/Units 16:23 POC Glucometer 179 H (74 to 106) mg/dL Multi-Disciplinary Progress Notes: Multi-Disciplinary Progress Notes 06/15/21 16:45 ST Plan of Care Note by Alma Aguirre Speech Therapy Plan of Care ST Plan of Care Start: 06/15/21 16:38 Freq: Status: Active Protocol: Document 06/15/21 16:38 BM (Rec: 06/15/21 16:44 BM [id number]) E-Sign 06/15/21 16:38 BM Speech Therapy Plan of Care Problem List ORAL-PHARYNGEAL DYSPHAGIA, 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 Goal #1 PATIENT WILL DEMONSTRATE TOLERANCE & SAFETY FOR ORAL INTAKE OF PUREED DIET AND HONEY THICK LIQUIDS WITHOUT CLINICAL S/S OF ASPIRATION/ DYSPHAGIA. Status Initial Goal #2 PATIENT WILL DEMONSTRATE INTAKE MORE THAN 50% OF MEALS, 90% OF TRIALS. Status Initial Goal #3 PATIENT WILL DEMONSTRATE TOLERANCE & SAFETY FOR ORAL INTAKE OF MECH SOFT DIET AND HONEY THICK LIQUIDS WITHOUT CLINICAL S/S OF ASPIRATION/ DYSPHAGIA. 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 Patient is aware of diagnosis and Yes prognosis Patient is receptive to plan of care Yes Rehabilitation Potential Good Patient Discharge Plan Description Alf Facility Patient Discharge Plan Comment PATIENT PENDING DISCHARGE TO REHAB FACILITY/SNF WHEN MEDICALLY STABLE. Initialized on 06/15/21 16:45 - END OF NOTE 06/15/21 13:40 Case Management Note by Jen Orourke SPOKE WITH JILLIAN @ [facility]. THEY CAN ACCEPT PT FOR REHAB STAY ONCE OXYGEN REQUIREMENTS HAVE DECREASED. THEY ARE UNABLE TO DO MORE OXYGEN THAN 4-5 LITERS PER NC. Initialized on 06/15/21 13:40 - END OF NOTE 06/15/21 12:56 Physical Therapy Note by [email or web address]/[email or web address] PT. MUCH MORE ALERT TODAY. NO C/O PN. PT. EXPRESSED DESIRE TO GO HOME, BUT DISCUSSED THAT HE NEEDS TO GET STRONGER IN ORDER TO BE SUCCESSFUL AND SAFE AT HOME. DAUGHTER PRESENT HIS A.M. DURING RX. PT. ON 10 L O2 VIA OXIMIZER. DIFFICULTY TO GET SATS D/T POOR PERIPHERAL FLOW. PT. AGREEABLE TO P.T. PT. WAS IN BED UPON P.T. ARRIVAL TO ROOM. SUPINE TO SIT PERFORMED W/ MIN ASSIST X 2 W/ HOB ELEVATED AND USE OF BEDRAIL. SIT TO STAND - MIN-MOD ASSIST X 2 W/ USE OF ROLLER WALKER. PT'S ABILITY TO TOLERATE WB AND MAINTAIN KNEE / MUCH IMPROVED TODAY. PT. TOOK 2-3 STEPS TO TRANSFER W /WALKER W/ MIN ASSIST X 2. PT. WAS ABLE TO PERFORM LE EX'S IN SITTING X 10 REPS OF SLRS, HEEL SLIDES, ANKLE PUMPS, GLUT SETS, LAQS, AND MARCHES. PT. UP IN CHAIR AND CALL LIGHT IN PLACE WHEN P.T. LEFT ROOM. PLAN IS TO D/C TO SNF TO CONT. REHAB. WILL CONT. P.T. UNTIL D/C TO MAXIMIZE FUNCTION TO PREP FOR REHAB STAY. Initialized on 06/15/21 12:56 - END OF NOTE 06/15/21 12:56 Case Management Note by Corie Bailey S/W FAMILY - REFERRAL FAXED TO [facility] AT THIS TIME Initialized on 06/15/21 12:56 - END OF NOTE 06/15/21 08:25 (created 06/15/21 08:43) Respiratory Note by Lizbeth Romero PT CHANGED OVER TO 10LPM OXYMIZER TO EAT BREAKFAST. O2 SAT 90%. Initialized on 06/15/21 08:43 - END OF NOTE Assessment/Plan (1) Bilateral pneumonia Current Visit: Yes Status: Acute Qualifiers: Pneumonia type: due to unspecified organism Lung location: unspecified part of lung Qualified Code(s): J18.9 - Pneumonia, unspecified organism Code(s): J18.9 - PNEUMONIA, UNSPECIFIED ORGANISM (2) Leukocytosis Current Visit: Yes Status: Acute Assessment & Plan: increase Rocephin to 1G q12 giving 1 additional gram now for a total of 2 grams today and reeval labs in AM Code(s): D72.829 - ELEVATED WHITE BLOOD CELL COUNT, UNSPECIFIED (3) Hyperkalemia Current Visit: Yes Status: Acute Assessment & Plan: labs pending Code(s): E87.5 - HYPERKALEMIA
[2021-06-15 19:01] LABS: Absolute Neutrophil Ct (ANC) 9.46 (1.4-6.9); BASOPHIL % 0.1 % (0.0-0.4); Basophil (Absolute #) 0.01 (0-0.4); Eosinophil % 0.5 % (0.00-5.0); Eosinophil (Absolute #) 0.06 (0-0.5); Hematocrit 38.2 % (42-50); Hemoglobin 11.4 gm/dl (12.5-18.0); Lymphocyte (Absolute #) 0.63 (1.0-4.6); Lymphocytes % 5.8 % (24.0-44.0); Mean Cell Volume 108.2 fl (78-100); Mean Corpuscular Hemoglobin 32.3 pg (26-32); Mean Corpuscular Hgb Concent. 29.8 g/dl (32-36); Mean Platelet Volume 9.9 fl (7.5-11.0); Monocyte (Absolute #) 0.75 (0.0-1.3); Monocytes % 6.9 % (0.0-12.0); Neutrophil % 86.7 % (36.0-66.0); Platelet Count 195 K/mm3 (150-450); Red Blood Count 3.53 M/mm3 (4.1-5.6); Red Cell Distribution Width 16.6 % (11.5-14.0); White Blood Count 10.9 K/mm3 (4.0-10.5)
[2021-06-15 19:12] LABS: ALBUMIN 3.1 g/dL (3.5-5.0); ALKALINE PHOSPHATASE 66 U/L (38-126); BLOOD UREA NITROGEN 40 mg/dL (9-20); CHLORIDE 104 mmol/L (98-107); Calcium 8.3 mg/dL (8.4-10.2); Carbon Dioxide 33 mmol/L (22-30); Creatinine 1 0.99 mg/dL (0.66-1.25); EST GLOMERULAR FILTRATION RATE > 60.0 ML/MIN; Glucose 270 mg/dL (74-106); Potassium 5.5 mmol/L (3.5-5.1); SGOT/AST 22 U/L (17-59); SGPT/ALT 12 U/L (0-50); SODIUM 144 mmol/L (137-145); Total Protein 6.5 g/dL (6.3-8.2)
[2021-06-15] MEDS: PATIENT OWN MEDICATION PO SCH (22:09)
[2021-06-16] MEDS: Sodium Chloride 0.9% 1000 ML 1,000 ML IV SCH (05:38)
[2021-06-16] MEDS: Advair Hfa 115/21 Common canister IH SCH ×2 (07:32→19:00)
--- NOTE | 2021-06-16 09:20 | PCM.CONS ---
Podiatry HPI - Consult Date of Consultation Date: 06/16/21 Reason for Consult: PVD Consulting Provider: LOBO ASKEW DPM - [facility] History of Present Illness: Arnold is a very pleasant 86-year-old male who presents with admission for altered mental status. He does have a complex medical history including but not limited to diabetes mellitus, HLD, HTN, CAD, respiratory failure and new onset of bilateral pneumonia. Patient does have leukocytosis at this time. Patient was consulted to my service for concerning gangrenous changes secondary to peripheral vascular disease. Patient does indicate that he was a former smoker and a type II diabetic. He does have peripheral neuropathy and history of cardiac intervention including CABG and cardiac catheterization. He currently denies any pain. He denies any cramping sensations to the calves with weightbearing status. He does deny any rest pain or intermittent claudication at this time. He has no pain to the bilateral lower extremity however this may be secondary to his peripheral neuropathy. Protective sensation is absent on examination. He currently denies any constitutional symptoms of infection other than shortness of breath consistent with baseline. Denies any other pedal complaints at this time. Medications & Allergies Home Medications: Home Medication List Metformin HCl 500 mg [Glucophage 500 MG] 500 mg PO BID 08/14/13 [History Confirmed 06/11/21] Glipizide 5 mg PO BID 09/15/18 [History Confirmed 06/11/21] Nortriptyline HCl 10 mg PO QHS 09/15/18 [History Confirmed 06/11/21] Clopidogrel Bisulfate [Clopidogrel] 75 mg PO DAILY 08/19/19 [History Confirmed 06/11/21] Aspirin EC 81 mg [Ecotrin 81 mg] 81 mg PO DAILY 06/11/21 [History Confirmed 06/11/21] Fluticasone/Umeclidin/Vilanter [Trelegy Ellipta 100-62.5-25] 1 inh PO DAILY 06/11/21 [History Confirmed 06/11/21] Gabapentin 300 mg [Neurontin 300 mg] 300 mg PO TID 06/11/21 [History Confirmed 06/11/21] Gabapentin 300 mg [Neurontin 300 mg] 600 mg PO QHS 06/11/21 [History Confirmed 06/11/21] Metoprolol Tartrate 50 mg [Lopressor 50 MG] 50 mg PO BID 06/11/21 [History Confirmed 06/11/21] Mupirocin [Centany] 1 gm TP BID 06/11/21 [History Confirmed 06/11/21] Simvastatin [Zocor] 40 mg PO DAILY 06/11/21 [History Confirmed 06/11/21] Allergies/Adverse Reactions: Allergies Allergy/AdvReac Type Severity Reaction Status Date / Time morphine Allergy Unknown Verified 06/11/21 12:52 - Past Medical History Past Medical History: Yes Neurological History: Peripheral Neuropathy ENT History: Cataracts Cardiac History: Coronary Artery Disease, High Cholesterol, Hypertension Respiratory History: No Pertinent History Endocrine Medical History: Diabetes Type II Musculoskelatal History: No Pertinent History GI Medical History: No Pertinent History History: No Pertinent History Pyscho-Social History: Anxiety Male Reproductive Disorders: No Pertinent History Comment: ORAL CA - Past Surgical History Past Surgical History: Yes Neuro Surgical History: No Pertinent History Cardiac History: CABG, Cardiac Catheterization Respiratory Surgery: No Pertinent History GI Surgical History: No Pertinent History Genitourinary Surgical Hx: No Pertinent History Musculskeletal Surgical Hx: No Pertinent History Male Surgical History: No Pertinent History Other Surgical History: Skin cancer removed from face in 2001, bone removed from left side of face. - Social History Smoking Status: Former smoker Exposure to second hand smoke: No Alcohol: None Drug Use: none Physical Exam - General General Appearance: mild distress, alert, thin (Atrophic with multiple stable e schar type appearing lesions consistent with peripheral vascular disease and some gangrenous type changes likely secondary to injury) - Neuro Neurologic: Other (Sensations significantly diminished. Epicritic sensation absent. Protopathic sensations intact) - Vascular Peripheral Pulses: Posterior tibialis: 0 (Dopplerable as monophasic to posterior tibial to the right and biphasic to the left), Dorsalis-Pedis: 0 (Nondopplerable to the dorsalis pedis to the right biphasic to dorsalis pedis to the left) Hair Growth: Absent fro (Absent from tibial tuberosity distally) Varicosities: Positive Edema: None Skin Temperature: Cold to touch - Muscular Foot Type: pes planu Muscle Strength: Deferred Joint ROM: Limited ROM - Narrative Narrative Physical Exam: Podiatry Physical Exam Results - Labs Lab/Micro Results: Lab Results-Last 24 Hours 06/15/21 06/15/21 06/15/21 Range/Units 11:47 16:23 18:50 WBC 10.9 H (4.0-10.5) K/mm3 RBC 3.53 L (4.1-5.6) M/mm3 Hgb 11.4 L (12.5-18.0) gm/dl Hct 38.2 L (42-50) % MCV 108.2 H (78-100) fl MCH 32.3 H (26-32) pg MCHC 29.8 L (32-36) g/dl RDW 16.6 H (11.5-14.0) % Plt Count 195 (150-450) K/mm3 MPV 9.9 (7.5-11.0) fl Gran % 86.7 H (36.0-66.0) % Eos # (Auto) 0.06 (0-0.5) Absolute Lymphs (auto) 0.63 L (1.0-4.6) Absolute Monos (auto) 0.75 (0.0-1.3) Lymphocytes % 5.8 L (24.0-44.0) % Monocytes % 6.9 (0.0-12.0) % Eosinophils % 0.5 (0.00-5.0) % Basophils % 0.1 (0.0-0.4) % Absolute Granulocytes 9.46 H (1.4-6.9) Basophils # 0.01 (0-0.4) Sodium (137-145) mmol/L Potassium (3.5-5.1) mmol/L Chloride (98-107) mmol/L Carbon Dioxide (22-30) mmol/L Anion Gap (5-15) MEQ/L BUN (9-20) mg/dL Creatinine (0.66-1.25) mg/dL Estimated GFR ML/MIN Glucose (74-106) mg/dL POC Glucometer 133 H 179 H (74 to 106) mg/dL Calcium (8.4-10.2) mg/dL Total Bilirubin (0.2-1.3) mg/dL AST (17-59) U/L ALT (0-50) U/L Alkaline Phosphatase (38-126) U/L Serum Total Protein (6.3-8.2) g/dL Albumin (3.5-5.0) g/dL 11/11/21 11/11/21 11/12/21 Range/Units 18:50 21:39 06:45 WBC (4.0-10.5) K/mm3 RBC (4.1-5.6) M/mm3 Hgb (12.5-18.0) gm/dl Hct (42-50) % MCV (78-100) fl MCH (26-32) pg MCHC (32-36) g/dl RDW (11.5-14.0) % Plt Count (150-450) K/mm3 MPV (7.5-11.0) fl Gran % (36.0-66.0) % Eos # (Auto) (0-0.5) Absolute Lymphs (auto) (1.0-4.6) Absolute Monos (auto) (0.0-1.3) Lymphocytes % (24.0-44.0) % Monocytes % (0.0-12.0) % Eosinophils % (0.00-5.0) % Basophils % (0.0-0.4) % Absolute Granulocytes (1.4-6.9) Basophils # (0-0.4) Sodium 144 (137-145) mmol/L Potassium 5.5 H (3.5-5.1) mmol/L Chloride 104 (98-107) mmol/L Carbon Dioxide 33 H (22-30) mmol/L Anion Gap 12.0 (5-15) MEQ/L BUN 40 H (9-20) mg/dL Creatinine 0.99 (0.66-1.25) mg/dL Estimated GFR > 60.0 ML/MIN Glucose 270 H (74-106) mg/dL POC Glucometer 235 H 159 H (74 to 106) mg/dL Calcium 8.3 L (8.4-10.2) mg/dL Total Bilirubin 0.40 (0.2-1.3) mg/dL AST 22 (17-59) U/L ALT 12 (0-50) U/L Alkaline Phosphatase 66 (38-126) U/L Serum Total Protein 6.5 (6.3-8.2) g/dL Albumin 3.1 L (3.5-5.0) g/dL Microbiology 06/11/21 10:10 Blood Culture Gram Stain - Final Blood Not Reportable Blood Culture - Final NO GROWTH 06/11/21 09:25 Blood Culture Gram Stain - Final Blood Not Reportable Blood Culture - Final NO GROWTH 06/11/21 09:29 Urine Culture - Final Catherized NO GROWTH Accuchecks Date 06/15/21 Date 06/15/21 Time 11:30 - Radiology Impressions Radiology Exams & Impressions: Radiology Procedures Category Date Time Status TYLER/LIMB PRESSURES BILATERAL [US] Routine Exams 06/16/21 Ordered ARTERIAL BILAT LOWER EXTREMITY [US] Routine Exams 06/16/21 Ordered Assessment/Plan (1) Peripheral vascular disease due to secondary diabetes mellitus Current Visit: Yes Status: Acute Assessment & Plan: Initial patient examination evaluation. Clinical examination is consistent with peripheral vascular disease as patient does have limited to hair growth of the bilateral lower extremity nonpalpable pulses and inability to obtain dopplerable pulses to the right dorsalis pedis as well as monophasic findings for other locations. Patient would benefit from noninvasive vascular studies including an arterial brachial index as well as arterial Doppler to assess for potential wound healing. If abnormal patient would benefit from intervention with vascular and allow for demarcation of skin margins prior to intervention. Iodine to gangrenous appearing lesions to the bilateral lower extremity left open to air at this time. Monitor for any changes to skin quality in coming days. Plan for referral to peripheral vascular intervention if vascular studies are less than adequate. No immediate plans for surgical intervention at this time. We will follow Code(s): E13.51 - OTH DIABETES W DIABETIC PERIPHERAL ANGIOPATHY W/O GANGRENE (2) Peripheral vascular disease Current Visit: Yes Status: Acute Code(s): I73.9 - PERIPHERAL VASCULAR DISEASE, UNSPECIFIED (3) Nonpalpable pulse Current Visit: Yes Status: Acute Code(s): Z78.9 - OTHER SPECIFIED HEALTH STATUS
[2021-06-16 09:53] LABS: BASOPHIL % 0.1 % (0.0-0.4); Basophil (Absolute #) 0.01 (0-0.4); Eosinophil % 0.3 % (0.00-5.0); Eosinophil (Absolute #) 0.03 (0-0.5); Hematocrit 38.4 % (42-50); Hemoglobin 11.5 gm/dl (12.5-18.0); Lymphocyte (Absolute #) 0.37 (1.0-4.6); Mean Cell Volume 109.7 fl (78-100); Mean Corpuscular Hemoglobin 32.9 pg (26-32); Mean Corpuscular Hgb Concent. 29.9 g/dl (32-36); Mean Platelet Volume 10.1 fl (7.5-11.0); Monocyte (Absolute #) 0.57 (0.0-1.3); Monocytes % 6.1 % (0.0-12.0); Neutrophil % 89.5 % (36.0-66.0); Platelet Count 171 K/mm3 (150-450); Red Cell Distribution Width 16.7 % (11.5-14.0); White Blood Count 9.3 K/mm3 (4.0-10.5)
[2021-06-16 10:31] LABS: ANION GAP 11.4 MEQ/L (5-15); BLOOD UREA NITROGEN 36 mg/dL (9-20); CHLORIDE 109 mmol/L (98-107); Calcium 8.4 mg/dL (8.4-10.2); Carbon Dioxide 28 mmol/L (22-30); Creatinine 1 0.77 mg/dL (0.66-1.25); EST GLOMERULAR FILTRATION RATE > 60.0 ML/MIN; Glucose 187 mg/dL (74-106); Potassium 5.4 mmol/L (3.5-5.1); SODIUM 143 mmol/L (137-145)
[2021-06-16 10:46] LABS: NT PRO BNP 32800 pg/mL (0-1800)
[2021-06-16] MEDS: NEURONTIN 300 MG PO SCH ×5 (12:05→23:58)
[2021-06-16] MEDS: Glucotrol 5 MG PO SCH ×2 (12:06→17:00)
[2021-06-16] MEDS: Glucophage 500 MG PO SCH ×2 (12:06→17:00)
--- NOTE | 2021-06-16 12:16 | XRAY ---
Indication: Peripheral vascular disease. Two-dimensional sonogram and color Doppler imaging of the major arteries of the left and right leg performed. Comparison: None Examination of the right leg demonstrates mild scattered arteriosclerotic calcifications in the common femoral artery without critical stenosis/obstruction. Deep femoral artery widely patent. Minimal/mild scattered disease throughout the superficial femoral and popliteal arteries. Greater moderate arteriosclerotic disease of the visualized posterior tibial and dorsal pedal arteries with monophasic arterial waveforms. Remaining right leg arterial waveforms are multiphasic. Examination of the left leg demonstrates minimal scattered arteriosclerotic calcifications in the common femoral, superficial femoral, and popliteal arteries without critical stenosis/obstruction. Deep femoral artery widely patent. Moderate disease seen of the visualized posterior tibial and dorsal pedal arteries with monophasic arterial waveforms. Remaining left leg arterial waveforms are multiphasic. Impression: Mild/moderate scattered arteriosclerotic disease bilaterally. Greatest extent in both lower legs. CTA abdominal aorta with bilateral runoff may yield further information.
--- NOTE | 2021-06-16 12:18 | XRAY ---
Indication: Peripheral vascular disease. Bilateral ankle brachial index exam performed. Comparison: None Right arm brachial pressure not obtained due to indwelling IV. Left arm brachial pressure is 132. Left and right ankle pressures could not be obtained due to inability to occlude the arteries presumed from hardened arteriosclerotic disease. Impression: Nondiagnostic ankle brachial index exam as detailed. CTA abdominal aorta with bilateral runoff may yield further information.
[2021-06-16] MEDS: Lasix 20 MG/2 ML IV SCH (12:24)
[2021-06-16] MEDS: PROTONIX 40 MG IV IV SCH (12:25)
[2021-06-16] MEDS: ECOTRIN 81 MG PO SCH (12:25)
[2021-06-16] MEDS: ZOCOR 20MG PO SCH (12:25)
[2021-06-16] MEDS: PLAVIX 75 MG Tablet PO SCH (12:25)
[2021-06-16] MEDS: Bactroban OINTMENT TP SCH ×2 (12:38→23:47)
[2021-06-16] MEDS: Zithromax 500 MG/ 250 ML NaCl Premix 500 MG/250 ML IVPB IV SCH (12:38)
[2021-06-16] MEDS: ROCEPHIN 1 Gm-D5w 50 ml Bag** 1 G/50 ML IVPB IV SCH ×2 (12:38→23:41)
[2021-06-16] MEDS: HUMALOG SQ PRN (17:02)
[2021-06-16] MEDS ORDERED: Lasix 20 MG/2 ML IV ONE (19:41)
--- NOTE | 2021-06-16 22:41 | PCM.NOTE ---
Date and Time: 06/16/212240 Subjective Assessment: Patient is sitting up ,daughter at bedside. He is difficult to understand ,upper plate teeth drop when he speaks. He denies pain,is asking for ? ice cream and nodded yes for strawberry. Dtr sat and fed him. In heart failure diuresing with Lasix IV.Plan is to go to rehab per daughter. Objective Exam General Appearance: no apparent distress (trying to communicate speech is not clear since oral cancer surgery) Neurologic Exam: alert (oriented to person and place), cooperative (follows commands) Skin Exam: normal color, warm, dry Wound Assessment: Skin/Wound Assessment Wound/Incision Assessment Start: 06/13/21 23:13 Text: Status: Active Freq: Q6H Protocol: Document 06/16/21 17:00 AR (Rec: 06/16/21 17:40 AR [id number]) Wound/Incision Assessment Right foot, great outer toe Wound Assessment Shift Assessment Wound Type Pressure Ulcer Wound Stage Unstageable Drainage Amount None Length (cm) (cm) 1 Width (cm) (cm) 1.1 Wound Bed Greatest Portion Black (Eschar) Wound Bed Lesser Portion Black (Eschar) % Eschar (Black) 100 Surrounding Tissue Bright Red Right foot, tip of great toe Wound Assessment Shift Assessment Wound Type Pressure Ulcer Wound Stage Unstageable Drainage Amount None Length (cm) (cm) 0.3 Width (cm) (cm) 0.6 Wound Bed Greatest Portion Black (Eschar) Wound Bed Lesser Portion Black (Eschar) % Eschar (Black) 100 Surrounding Tissue [place] Right foot, tip of 3rd toe Wound Assessment Shift Assessment Wound Type Pressure Ulcer Wound Stage Deep Tissue Injury Drainage Amount None General Appearance Open to air,Clean/Dry Length (cm) (cm) 0.5 Width (cm) (cm) 0.5 Comment Deep purple in color, skin intact, Left inner buttocks Wound Assessment Shift Assessment Wound Type Pressure Ulcer Wound Stage Stage II Drainage Amount None General Appearance Open to air,Clean/Dry Length (cm) (cm) 1.2 Width (cm) (cm) 1 Depth (cm) (cm) 0.1 Wound Bed Greatest Portion Pale [place] Wound Bed Lesser Portion Pale [place] Left foot great toe Wound Assessment Shift Assessment Wound Type Pressure Ulcer Wound Stage Deep Tissue Injury General Appearance Open to air,Clean/Dry Length (cm) (cm) 0.3 Width (cm) (cm) 0.3 Wound Photo Photo Taken No Respiratory Exam: crackles/rales Cardiovascular Exam: tachycardia (rate 90s irregular) Extremity Exam: other (no pitting) OBJECTIVE DATA Vital Signs: Vital Signs - 24 hr Temp Pulse Resp BP Pulse Ox 06/16/21 19:46 98.0 F 99 H 21 117/62 87 L 06/16/21 19:23 104 H 24 78 L 06/16/21 15:45 98.0 F 97 H 20 109/58 06/16/21 11:49 98.4 F 96 H 18 123/59 06/16/21 07:44 98.0 F 96 H 19 145/74 87 L 06/16/21 07:36 93 H 20 91 L 06/16/21 04:00 98.7 F 93 H 20 147/76 91 L 06/16/21 00:00 98.6 F 105 H 22 116/61 91 L Pain Assessment - Last Documented Pain Intensity 0 Intake and Output: Intake & Output 06/14/21 06/15/21 06/16/21 06/17/21 11:59 11:59 11:59 11:59 Intake Total 1550 3840 2965 320 Output Total 500 575 375 125 Balance 1050 3265 2590 195 Weight 66.7 kg 67 kg 66.8 kg Lab Results: Lab Results-Last 24 Hours 06/16/21 06/16/21 06/16/21 Range/Units 06:45 09:45 09:45 WBC 9.3 (4.0-10.5) K/mm3 RBC 3.50 L (4.1-5.6) M/mm3 Hgb 11.5 L (12.5-18.0) gm/dl Hct 38.4 L (42-50) % MCV 109.7 H (78-100) fl MCH 32.9 H (26-32) pg MCHC 29.9 L (32-36) g/dl RDW 16.7 H (11.5-14.0) % Plt Count 171 (150-450) K/mm3 MPV 10.1 (7.5-11.0) fl Gran % 89.5 H (36.0-66.0) % Eos # (Auto) 0.03 (0-0.5) Absolute Lymphs (auto) 0.37 L (1.0-4.6) Absolute Monos (auto) 0.57 (0.0-1.3) Lymphocytes % 4.0 L (24.0-44.0) % Monocytes % 6.1 (0.0-12.0) % Eosinophils % 0.3 (0.00-5.0) % Basophils % 0.1 (0.0-0.4) % Absolute Granulocytes 8.30 H (1.4-6.9) Basophils # 0.01 (0-0.4) Sodium 143 (137-145) mmol/L Potassium 5.4 H (3.5-5.1) mmol/L Chloride 109 H (98-107) mmol/L Carbon Dioxide 28 (22-30) mmol/L Anion Gap 11.4 (5-15) MEQ/L BUN 36 H (9-20) mg/dL Creatinine 0.77 (0.66-1.25) mg/dL Estimated GFR > 60.0 ML/MIN Glucose 187 H (74-106) mg/dL POC Glucometer 159 H (74 to 106) mg/dL Calcium 8.4 (8.4-10.2) mg/dL NT-Pro-B Natriuret Pep 05438 H (0-1800) pg/mL 06/16/21 06/16/21 06/16/21 Range/Units 11:42 16:34 20:46 WBC (4.0-10.5) K/mm3 RBC (4.1-5.6) M/mm3 Hgb (12.5-18.0) gm/dl Hct (42-50) % MCV (78-100) fl MCH (26-32) pg MCHC (32-36) g/dl RDW (11.5-14.0) % Plt Count (150-450) K/mm3 MPV (7.5-11.0) fl Gran % (36.0-66.0) % Eos # (Auto) (0-0.5) Absolute Lymphs (auto) (1.0-4.6) Absolute Monos (auto) (0.0-1.3) Lymphocytes % (24.0-44.0) % Monocytes % (0.0-12.0) % Eosinophils % (0.00-5.0) % Basophils % (0.0-0.4) % Absolute Granulocytes (1.4-6.9) Basophils # (0-0.4) Sodium (137-145) mmol/L Potassium (3.5-5.1) mmol/L Chloride (98-107) mmol/L Carbon Dioxide (22-30) mmol/L Anion Gap (5-15) MEQ/L BUN (9-20) mg/dL Creatinine (0.66-1.25) mg/dL Estimated GFR ML/MIN Glucose (74-106) mg/dL POC Glucometer 167 H 296 H 273 H (74 to 106) mg/dL Calcium (8.4-10.2) mg/dL NT-Pro-B Natriuret Pep (0-1800) pg/mL Radiology Exams: Radiology Procedures Category Date Time Status TYLER/LIMB PRESSURES BILATERAL [US] Routine Exams 06/16/21 Completed ARTERIAL BILAT LOWER EXTREMITY [US] Routine Exams 06/16/21 Completed Multi-Disciplinary Progress Notes: Multi-Disciplinary Progress Notes 06/16/21 15:13 Physical Therapy Note by [email or web address] PT. IN FLUID OVERLOAD TODAY W/ ELEVATED BMP SO BREATHING HAS BEEN MORE DIFFICULT THAN YESTERDAY. PT. REPORTS NO C/O PN BUT IS MORE DIFFICULT TO UNDERSTAND HIM TODAY D/T POOR DENTAL APPLIANCE FIT AND INCREASED WEAKNESS. ASSISTED NURSING W/ TRANSFERS. SUPINE TO SIT MOD ASSIST X 2. SIT TO STAND MOD ASSIST X 2. TOOK 2-3 STEPS TO TRANSFER W/ MOD ASSIST X 2. DID NOT EXHIBIT QUAD WEAKNESS AND KNEE BUCKLING, HOWEVER. PT'S TOLERANCE TO P.T. OVERALL POOR TODAY HE HAS HAD MORE DIFFICULTY BREATHING AND IS WEAKER. PT. TO TRANSFER W/ NSG OVER THE WEEKEND AND WILL CONT.P.T. ON SATURDAY. HOPING DECREASED FLUID WILL IMPROVE CARDIOPULMONARY FUNCTION SO THAT HIS TOLERANCE TO THERAPY IS IMPROVED. Initialized on 06/16/21 15:13 - END OF NOTE 06/16/21 15:09 Speech Therapy Note by Alma Aguirre tx: patient awake/alert sitting in chair at bedside. daughter present. attempted nectar thick liquid and thin liquid intake this date. patient demonstrated cough/choke 3/3 trials. prosthetic denture remains ill fitting. daughter stated she was going to buy him some denture adhesive for use. ST notified nurse Katelyn of denture fit. [phone] Initialized on 06/16/21 15:09 - END OF NOTE 06/16/21 12:21 Case Management Note by Corie Bailey PATIENT TO [facility] WHEN MEDICALLY STABLE AND OXYGEN DEMAND DOWN TO 4-5L. DAUGHTER AWARE Initialized on 06/16/21 12:21 - END OF NOTE Assessment/Plan (1) Bilateral pneumonia Status: Acute Qualifiers: Pneumonia type: due to unspecified organism Lung location: unspecified part of lung Qualified Code(s): J18.9 - Pneumonia, unspecified organism Assessment & Plan: WBC in range today Code(s): J18.9 - PNEUMONIA, UNSPECIFIED ORGANISM (2) Leukocytosis Status: Resolved Code(s): D72.829 - ELEVATED WHITE BLOOD CELL COUNT, UNSPECIFIED (3) Hyperkalemia Status: Acute Assessment & Plan: moniter,expect potassium will come down with IV lasix Code(s): E87.5 - HYPERKALEMIA (4) CHF (congestive heart failure) Status: Acute Qualifiers: Heart failure chronicity: acute on chronic Assessment & Plan: diures and monitor Code(s): I50.9 - HEART FAILURE, UNSPECIFIED
[2021-06-16] MEDS: PATIENT OWN MEDICATION PO SCH ×2 (23:47→23:58)
[2021-06-17] MEDS: HUMALOG SQ PRN (00:44)
[2021-06-17 01:15] LABS: Appearance SLIGHTLY CLOUDY (CLEAR); Bacteria RARE /HPF (NEGATIVE); Bilirubin NEGATIVE (NEGATIVE); Blood SMALL Ery/ul (0-5); Glucose 150 mg/dL (NEGATIVE); Ketones NEGATIVE (NEGATIVE); Leukocyte Esterase NEGATIVE (NEGATIVE); Mucus SLIGHT /HPF (NEGATIVE); Nitrite NEGATIVE (NEGATIVE); Protein,Urine Dip 30 (Negative); RBC 0-2 /HPF (0-2); Specific Gravity 1.015 (1.005-1.025); Urobilinogen NEGATIVE mg/dL (0-1); WBC 0-2 /HPF (0-5)
[2021-06-17 05:32] LABS: Absolute Neutrophil Ct (ANC) 12.47 (1.4-6.9); BASOPHIL % 0.1 % (0.0-0.4); Basophil (Absolute #) 0.01 (0-0.4); Eosinophil % 1.2 % (0.00-5.0); Eosinophil (Absolute #) 0.17 (0-0.5); Hematocrit 38.5 % (42-50); Hemoglobin 11.7 gm/dl (12.5-18.0); Lymphocytes % 4.9 % (24.0-44.0); Mean Cell Volume 108.1 fl (78-100); Mean Corpuscular Hemoglobin 32.9 pg (26-32); Mean Corpuscular Hgb Concent. 30.4 g/dl (32-36); Mean Platelet Volume 10.4 fl (7.5-11.0); Neutrophil % 86.8 % (36.0-66.0); Platelet Count 219 K/mm3 (150-450); Red Blood Count 3.56 M/mm3 (4.1-5.6); Red Cell Distribution Width 16.5 % (11.5-14.0); White Blood Count 14.4 K/mm3 (4.0-10.5)
[2021-06-17 05:47] LABS: ANION GAP 10.5 MEQ/L (5-15); BLOOD UREA NITROGEN 34 mg/dL (9-20); CHLORIDE 104 mmol/L (98-107); Calcium 8.7 mg/dL (8.4-10.2); Carbon Dioxide 36 mmol/L (22-30); Creatinine 1 1.04 mg/dL (0.66-1.25); EST GLOMERULAR FILTRATION RATE > 60.0 ML/MIN; Potassium 4.6 mmol/L (3.5-5.1); SODIUM 147 mmol/L (137-145)
[2021-06-17 06:10] LABS: Glucose 29 mg/dL (74-106)
[2021-06-17] MEDS ORDERED: D50W 50 ml Abboject IV ONE ×3 (06:17→06:25)
[2021-06-17] MEDS ORDERED: D50W 50ML Vial IV ONE (06:19)
[2021-06-17] MEDS: Advair Hfa 115/21 Common canister IH SCH (07:19)
[2021-06-17] MEDS ORDERED: Lasix 40 MG/4 ML IV ONE ×2 (08:49→15:00)
[2021-06-17] MEDS: Glucotrol 5 MG PO SCH ×2 (08:55→16:18)
[2021-06-17] MEDS: Glucophage 500 MG PO SCH ×2 (08:55→16:18)
[2021-06-17] MEDS: NEURONTIN 300 MG PO SCH ×3 (08:55→16:18)
[2021-06-17] MEDS: ECOTRIN 81 MG PO SCH (08:55)
[2021-06-17] MEDS: Lasix 20 MG/2 ML IV SCH (08:56)
[2021-06-17] MEDS ORDERED: Dextrose 5% -0.45 NaCl 1000 ML 1,000 ML IV SCH (09:00)
--- NOTE | 2021-06-17 09:53 | XRAY ---
Indication: Pneumonia. Comparison: June 11, 2021. Portable chest again demonstrates cardiomegaly with moderate bibasilar infiltrates/atelectasis/effusions and new central vascular congestion concerning for worsening cardiac decompensation versus fluid overload. New diffuse right lung airspace disease. Again incidental CABG surgery, osteopenia, and bony degenerative changes.
[2021-06-17] MEDS ORDERED: Lasix 20 MG/2 ML IV SCH (10:00)
[2021-06-17] MEDS ORDERED: ENOXAPARIN SODIUM SQ SCH (10:00)
[2021-06-17] MEDS: PLAVIX 75 MG Tablet PO SCH (10:11)
[2021-06-17] MEDS: Zithromax 500 MG/ 250 ML NaCl Premix 500 MG/250 ML IVPB IV SCH (10:21)
[2021-06-17] MEDS: PROTONIX 40 MG IV IV SCH (10:27)
[2021-06-17] MEDS: ZOCOR 20MG PO SCH (10:30)
[2021-06-17] MEDS: ROCEPHIN 1 Gm-D5w 50 ml Bag** 1 G/50 ML IVPB IV SCH (12:33)
[2021-06-17] MEDS: Bactroban OINTMENT TP SCH (16:18)
[2021-06-18] MEDS ORDERED: Lasix 40 MG PO ONE (10:00)
== END 2021-06-17 21:20 | disposition expired | DRG 193 ==
LOC: ED 08:53 → MED SURG 12:38 → OBSVTOIN 06-12 06:30
PROVIDERS: ADMIT Family Medicine; ATTEND Family Medicine
DX: J18.9 Pneumonia, unspecified organism (principal); J96.21 Acute and chronic respiratory failure with hypoxia; N39.0 Urinary tract infection, site not specified; R41.82 Altered mental status, unspecified; I11.0 Hypertensive heart disease with heart failure; E13.51 Other specified diabetes mellitus with diabetic peripheral angiopathy without gangrene; D72.829 Elevated white blood cell count, unspecified; E78.5 Hyperlipidemia, unspecified; E87.5 Hyperkalemia; I25.10 Atherosclerotic heart disease of native coronary artery without angina pectoris; G62.9 Polyneuropathy, unspecified; R77.8 Other specified abnormalities of plasma proteins; R53.1 Weakness; W19.XXXD Unspecified fall, subsequent encounter; I73.9 Peripheral vascular disease, unspecified; Z79.01 Long term (current) use of anticoagulants; Z79.899 Other long term (current) drug therapy; Z99.81 Dependence on supplemental oxygen; Z91.81 History of falling; L89.891 Pressure ulcer of other site, stage 1; L89.322 Pressure ulcer of left buttock, stage 2; Z20.822 Contact with and (suspected) exposure to COVID-19
CPT/HCPCS: 36000; 36415; 36600; 70450; 70496; 71045; 71046; 72125; 80048; 80053; 81001; 82375; 82803; 82805; 82947; 83605; 83880; 84484; 85025; 85027; 87040; 87086; 92526; 92610; 93005; 93268; 93922; 93925; 94002; 94003; 94640; 94760; 96365; 96368; 96374; 97110; 97161; 97530; 99233; 99285; G0378; U0003; 94762; J0456; J0696; J1650; J1817; J1940; J2930; A9270-GY